=== PATIENT | female | born 1955 | race Caucasian/White ===

== ENCOUNTER 2018-08-24 13:07 | Emergency (ER) | payer MEDICARE, MEDICAID ==
[~2018-08-24] VITALS: Ht 170.2 cm; Wt 77.1 kg
--- OUTSIDE RECORDS SUMMARY | 2018-08-24 13:13 | XMS REPORT ---
Author Author Migration, Doctor Organization [facility] Address Unknown Phone Unavailable Care Team Providers Care Public Relations Director Name Role Phone Migration, Doctor Unavailable Unavailable PROBLEMS Type Condition ICD9-CM Code GIO55-DE Code Onset Dates Condition Status SNOMED Code Problem Elevated hemoglobin A1c R73.09 Active 298612283 Problem Screening for diabetes mellitus Z13.1 Active 868235262 Problem Hyperlipidemia LDL goal <70 E78.5 Active 93834035 Problem Chronic obstructive pulmonary disease, unspecified COPD type J44.9 Active 05983651 Problem Elevated C-reactive protein (CRP) R79.82 Active 429523969 Problem Other atopic dermatitis L20.89 Active 21927475 Problem Vitamin D deficiency E55.9 Active 79182084 Problem 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 966586835 Problem CHIDI positive R76.8 Active 584836660 ALLERGIES No Information ENCOUNTERS Encounter Location Date Diagnosis [facility] [id number] [place] [address] 33978- 2628 Aug, [facility] [id number] [place] [address] 61367- 7957 Jun, [facility] [id number] [place] [address] 13368 -0333 May, Cough R05 and Viral URI J06.9 [facility] [id number] [place] [address] 97421- 4934 May, [facility] [id number] [place] [address] 65676- 2509 May, [facility] [address] [address]27- 3734 May, [facility] [id number] [place] [address] 28500- 5834 Apr, Hyperlipidemia LDL goal <70 E78.5 [place] [id number] [place] [address] 66833- 6640 08 Apr, 2017 CHIDI positive R76.8 ; Need for hepatitis C screening test Z11.59 ; Diabetes mellitus screening Z13.1 and Vitamin D deficiency E55.9 [place] [id number] [place] [address] 86100- 7983 05 Apr, 2017 CHIDI positive R76.8 ; Elevated C-reactive protein (CRP) R79.82 ; 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 ; Chronic obstructive pulmonary disease, unspecified COPD type J44.9 ; Need for hepatitis C screening test Z11.59 ; Diabetes mellitus screening Z13.1 ; Other atopic dermatitis L20.89 and Vitamin D deficiency E55.9 [place] [id number] [place] [address] 88810- 6228 Mar, [place] [address] 96886- 5688 17 Mar, 2017 Other atopic dermatitis L20.89 [place] [id number] [place] [address] 32520- 8868 Mar, Dermatitis L30.9 ; CHIDI positive R76.8 ; Elevated C-reactive protein (CRP) R79.82 ; 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 and Chronic obstructive pulmonary disease, unspecified COPD type J44.9 [place] [id number] [place] [address] 62069- 1254 Mar, [facility] [id number] [place] [address] 37540 -4890 Feb, Acute cystitis N30.00 [facility] [address] [address] Feb, Dysuria R30.0 and Acute cystitis with hematuria N30.01 [facility] [id number] [place] [address] 31644 -1805 Dec, Allergic contact dermatitis, unspecified trigger L23.9 and Allergic conjunctivitis of both eyes H10.13 [facility] [address] [facility] [id number] [address] Nov, Other atopic dermatitis L20.89 [facility] [address] [facility] [id number], [place] [address] 1021 14 Aug, 2014 [facility] [address] [facility] [id number], [place] [address] 7369 Aug, [facility] [address] [facility] [id number], [place] [address]- 0105 08 Jan, 2014 [facility] [address] [facility] [id number], [place] [address] 9742 Jan, [facility] [address], [place] [address] 2859 Feb, [facility] [address], [place] [address] 4[address] 18 Feb, 2013 [facility] [address], [place] [address] 6683 Feb, [facility] [address], [place] [address] 5616 Feb, [facility] [address], [place] [address] 1180 Nov, [facility] [address], [place] [address] 2941 18 Aug, 2011 [facility] [address], [place] [address] 0640 16 Aug, 2011 [facility] [address], [place] [address] 8925 15 Aug, 2011 [facility] [address], [place] [address] 2[address] Aug, [facility] [id number] [address] 3629 Aug, IMMUNIZATIONS No Known Immunizations SOCIAL HISTORY Never Assessed REASON FOR VISIT EMR-[facility] PLAN OF CARE VITAL SIGNS MEDICATIONS Unknown Medications RESULTS No Results PROCEDURES No Known procedures INSTRUCTIONS MEDICATIONS ADMINISTERED No Known Medications MEDICAL (GENERAL) HISTORY Type Description Date Medical History chronic obstructive pulmonary disease (COPD) Surgical History left hip replacement November 2016 Surgical History breast reduction Surgical History exploratory laparoscopy Surgical History dilatation and curettage Surgical History ovarian cyst resection Hospitalization History [facility]ac[facility]
--- OUTSIDE RECORDS SUMMARY | 2018-08-24 13:13 | XMS REPORT ---
Author Author Migration, Doctor Organization [facility] Address Unknown Phone Unavailable Care Team Providers Care Aging Box Hand Name Role Phone Migration, Doctor Unavailable Unavailable PROBLEMS Type Condition ICD9-CM Code YDY03-PN Code Onset Dates Condition Status SNOMED Code Problem Elevated hemoglobin A1c R73.09 Active 744998931 Problem Screening for diabetes mellitus Z13.1 Active 689354615 Problem Hyperlipidemia LDL goal <70 E78.5 Active 84739600 Problem Chronic obstructive pulmonary disease, unspecified COPD type J44.9 Active 04865797 Problem Elevated C-reactive protein (CRP) R79.82 Active 849361833 Problem Other atopic dermatitis L20.89 Active 42825005 Problem Vitamin D deficiency E55.9 Active 63458649 Problem 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 165844927 Problem CHIDI positive R76.8 Active 278618940 ALLERGIES No Information ENCOUNTERS Encounter Location Date Diagnosis [facility] [id number] [place] [address] 92786- 4976 Aug, [facility] [id number] [place] [address] 42551- 2915 Jun, [facility] [id number] [place] [address] 91041 -6494 May, Cough R05 and Viral URI J06.9 [facility] [id number] [place] [address] 37088- 8020 May, [facility] [id number] [place] [address] 29881- 1638 May, [facility] [address] 57[address]- 9556 May, [facility] [id number] [place] [address] 70989- 0269 Apr, Hyperlipidemia LDL goal <70 E78.5 [place] [id number] [place] [address] 16613- 0636 08 Apr, 2017 CHIDI positive R76.8 ; Need for hepatitis C screening test Z11.59 ; Diabetes mellitus screening Z13.1 and Vitamin D deficiency E55.9 [place] [id number] [place] [address] 53727- 7684 05 Apr, 2017 CHIDI positive R76.8 ; Elevated C-reactive protein (CRP) R79.82 ; 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 ; Chronic obstructive pulmonary disease, unspecified COPD type J44.9 ; Need for hepatitis C screening test Z11.59 ; Diabetes mellitus screening Z13.1 ; Other atopic dermatitis L20.89 and Vitamin D deficiency E55.9 [place] [id number] [place] [address] 03381- 7829 Mar, [place] [address] 58383- 3339 17 Mar, 2017 Other atopic dermatitis L20.89 [place] [id number] [place] [address] 64006- 6521 Mar, Dermatitis L30.9 ; CHIDI positive R76.8 ; Elevated C-reactive protein (CRP) R79.82 ; 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 and Chronic obstructive pulmonary disease, unspecified COPD type J44.9 [place] [id number] [place] [address] 62749- 8057 Mar, [facility] [id number] [place] [address] 78024 -9803 Feb, Acute cystitis N30.00 [facility] [address] [address] -8936 Feb, Dysuria R30.0 and Acute cystitis with hematuria N30.01 [facility] [id number] [place] [address] 11422 -2215 Dec, Allergic contact dermatitis, unspecified trigger L23.9 and Allergic conjunctivitis of both eyes H10.13 [facility] [address] [facility] [id number], [place] [address] Nov, Other atopic dermatitis L20.89 [facility] [address] [facility] [id number], [place] [address]- 2262 14 Aug, 2014 [facility] [address] [facility] [id number], [place] [address]- 1831 Aug, [facility] [address] [facility] [id number], [place] [address]- 5398 08 Jan, 2014 [facility] [address] [facility] [id number], [place] [address]- 4133 Jan, [facility] [address], [place] [address]- 1011 Feb, [facility] [address], [place] [address]- 7302 18 Feb, 2013 [facility] [address], [place] [address]- 5486 Feb, [facility] [address], [place] [address]- 3036 Feb, [facility] [address], [place] [address]- 4176 Nov, [facility] [address], [place] [address]- 4356 18 Aug, 2011 [facility] [address], [place] [address]- 7716 16 Aug, 2011 [facility] [address], [place] [address]- 1290 15 Aug, 2011 [facility] [address], [place] [address]- 5265 Aug, [facility] [id number], [place] [address]- 1218 Aug, IMMUNIZATIONS No Known Immunizations SOCIAL HISTORY Never Assessed REASON FOR VISIT EMR-[facility] PLAN OF CARE VITAL SIGNS MEDICATIONS Medication Instructions Dosage Frequency Start Date End Date Duration Status DuoNeb 0.5 mg-3 mg(2.5 mg base)/3 mL 3 mL by Inhalation route 4 times per dayPRN Nov, Active tramadol 50 mg take 1 tablet by Oral route every 6 hours as needed PRN pain Feb, Active Combivent Respimat 20-100 mcg/actuation inhale 1 puff ; may take additional puffs as needed 4 times per day not to exceed 6 puffs in 24hrs Feb, Active Atrovent HFA 17 mcg/actuation 2 puffs by Inhalation route 4 times per day Aug, Active Amoxicillin 500 mg 1 capsule by Oral route 3 times per day for 10 days Feb, Active RESULTS No Results PROCEDURES No Known procedures INSTRUCTIONS MEDICATIONS ADMINISTERED No Known Medications MEDICAL (GENERAL) HISTORY Type Description Date Medical History chronic obstructive pulmonary disease (COPD) Surgical History left hip replacement November 2016 Surgical History breast reduction Surgical History exploratory laparoscopy Surgical History dilatation and curettage Surgical History ovarian cyst [facility]
--- OUTSIDE RECORDS SUMMARY | 2018-08-24 13:13 | XMS REPORT ---
Author Author JANIEAZEB Organization [facility] Address [address] [place] [address] Care Team Providers Care Clearing Tub Worker Name Role Phone LIMAAZEB Piedra Unavailable PROBLEMS Type Condition ICD9-CM Code XLG68-SJ Code Onset Dates Condition Status SNOMED Code Problem Elevated hemoglobin A1c R73.09 Active 197287624 Problem Hyperlipidemia LDL goal <70 E78.5 Active 33205048 Problem Screening for diabetes mellitus Z13.1 Active 984944827 Problem Elevated C-reactive protein (CRP) R79.82 Active 118810484 Problem Chronic obstructive pulmonary disease, unspecified COPD type J44.9 Active 56396712 Problem Vitamin D deficiency E55.9 Active 31636814 Problem Other atopic dermatitis L20.89 Active 36820854 Problem CHIDI positive R76.8 Active 495146275 Problem 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 712326146 ALLERGIES No Information ENCOUNTERS Encounter Location Date Diagnosis [facility] [address] [address]- [address]951 Aug, [facility] [id number] [place] [address] 03457- 1323 Jun, [facility] [id number] [place] [address] 57851 -1015 May, Cough R05 and Viral URI J06.9 [facility] [id number] [place] [address] 92145- 1640 May, [facility] [address] 24860- 9890 May, [facility] [id number] [place] [address] 95824- 9185 May, [facility] [address] 66140- 0224 Apr, Hyperlipidemia LDL goal <70 E78.5 [place] [address] 02655- 7082 Apr, CHIDI positive R76.8 ; Need for hepatitis C screening test Z11.59 ; Diabetes mellitus screening Z13.1 and Vitamin D deficiency E55.9 [place] [address] 12062- 3012 Apr, CHIDI positive R76.8 ; Elevated C-reactive protein (CRP) R79.82 ; 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 ; Chronic obstructive pulmonary disease, unspecified COPD type J44.9 ; Need for hepatitis C screening test Z11.59 ; Diabetes mellitus screening Z13.1 ; Other atopic dermatitis L20.89 and Vitamin D deficiency E55.9 [place] [address] 17335- 5671 Mar, [place] [address] 95659- 8012 Mar, Other atopic dermatitis L20.89 [place] [address] 51204- 4087 Mar, Dermatitis L30.9 ; CHIDI positive R76.8 ; Elevated C-reactive protein (CRP) R79.82 ; 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 and Chronic obstructive pulmonary disease, unspecified COPD type J44.9 [place] [id number] [place] [address] 48343- 8560 Mar, [facility] [id number] [place] [address] 58409 -8638 Feb, Acute cystitis N30.00 [facility] [address] [place] [address] 68177 -3368 Feb, Dysuria R30.0 and Acute cystitis with hematuria N30.01 [facility] [address] [place] [address] 12265 -7540 Dec, Allergic contact dermatitis, unspecified trigger L23.9 and Allergic conjunctivitis of both eyes H10.13 [facility] [address], [place] [address] Nov, Other atopic dermatitis L20.89 [facility] [address], [place] [address] 14 Aug, 2014 [facility] [id number] [place] [address] 23896- 5364 Aug, [facility] [id number] [place] [address] 07412- 2507 08 Jan, 2014 [facility] [id number] [place] [address] 65082- 2698 Jan, [facility] [id number] [place] [address] 91276- 2160 Feb, [facility] [id number] [place] [address] 90586- 7439 Feb, [facility] [id number] [place] [address] 55140- 9081 Feb, [facility] [id number] [place] [address] 58497- 5777 Feb, [facility] [address], [place] [address]- 6554 Nov, [facility] [id number] [place] [address] 48482- 1583 18 Aug, 2011 [facility] [address], [place] [address]- 3422 16 Aug, 2011 [facility] [id number] [place] [address] 31642- 1243 15 Aug, 2011 [facility] [id number], [place] [address]- 0143 Aug, [facility] [id number] [place] [address] 12930- 5656 Aug, IMMUNIZATIONS No Known Immunizations SOCIAL HISTORY Never Assessed REASON FOR VISIT Other PLAN OF CARE VITAL SIGNS MEDICATIONS Medication Instructions Dosage Frequency Start Date End Date Duration Status Cholecalciferol 5000 UNIT Orally Once a day 1 capsule 24h May, Nov, 90 days Active RESULTS No Results PROCEDURES No Known procedures INSTRUCTIONS MEDICATIONS ADMINISTERED No Known Medications MEDICAL (GENERAL) HISTORY Type Description Date Medical History chronic obstructive pulmonary disease (COPD) Surgical History left hip replacement November 2016 Surgical History breast reduction Surgical History exploratory laparoscopy Surgical History dilatation and curettage Surgical History [facility]
--- OUTSIDE RECORDS SUMMARY | 2018-08-24 13:13 | XMS REPORT ---
Author Author MANJIT FIGUEROA [facility] Address [address] [place] [address] Care Team Providers Care Rotary Soil Stabilizer Name Role Phone MANJIT FIGUEROA Unavailable PROBLEMS Type Condition ICD9-CM Code IEM42-FT Code Onset Dates Condition Status SNOMED Code Problem Elevated hemoglobin A1c R73.09 Active 516537147 Problem Hyperlipidemia LDL goal <70 E78.5 Active 26250498 Problem Screening for diabetes mellitus Z13.1 Active 914041187 Problem Elevated C-reactive protein (CRP) R79.82 Active 498415037 Problem Chronic obstructive pulmonary disease, unspecified COPD type J44.9 Active 04771946 Problem Vitamin D deficiency E55.9 Active 53527524 Problem Other atopic dermatitis L20.89 Active 22981964 Problem CHIDI positive R76.8 Active 760706866 Problem 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 867999620 ALLERGIES No Known Allergies ENCOUNTERS Encounter Location Date Diagnosis [facility] [address] [address] Aug, [facility] [address] [address] Jun, [facility] [id number] [place] [address] May, Cough R05 and Viral URI J06.9 [facility] [id number] [place] [address] May, [facility] [address] [address] May, [facility] [address] [address] May, [facility] [address] [address] Apr, Hyperlipidemia LDL goal <[address] [address] 08 Apr, 2017 CHIDI positive R76.8 ; Need for hepatitis C screening test Z11.59 ; Diabetes mellitus screening Z13.1 and Vitamin D deficiency E55.9 [place] [address] [address] Apr, CHIDI positive R76.8 ; Elevated C-reactive protein (CRP) R79.82 ; 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 ; Chronic obstructive pulmonary disease, unspecified COPD type J44.9 ; Need for hepatitis C screening test Z11.59 ; Diabetes mellitus screening Z13.1 ; Other atopic dermatitis L20.89 and Vitamin D deficiency E55.9 [place] [address] [address] Mar, [place] [address] [address] Mar, Other atopic dermatitis L20.89 [place] [address] [address] Mar, Dermatitis L30.9 ; CHIDI positive R76.8 ; Elevated C-reactive protein (CRP) R79.82 ; 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 and Chronic obstructive pulmonary disease, unspecified COPD type J44.9 [place] [address] [address] Mar, [facility] [address] [place] [address] Feb, Acute [facility]stitis N30.00 [facility] [address] [address] Feb, Dysuria R30.0 and Acute cystitis with hematuria N30.01 [facility] [address] [address] Dec, Allergic contact dermatitis, unspecified trigger L23.9 and Allergic conjunctivitis of both eyes H10.13 [facility] [address] [address] Nov, Other atopic dermatitis L20.89 [facility] [address] [address] 14 Aug, 2014 [facility] [id number] [place] [address] Aug, [facility] [id number] [place] [address] Jan, [facility] [id number] [place] [address] Jan, [facility] [id number] [place] [address]- [address] Feb, [facility] [id number] [place] [address] 18 Feb, 2013 [facility] [id number] [place] [address]- [address] Feb, [facility] [id number] [place] [address] Feb, [facility] [address] [address] Nov, [facility] [id number] [address] 18 Aug, 2011 [facility] [address] [address] 16 Aug, 2011 [facility] [id number] [place] [address] 15 Aug, 2011 [facility] [address] [address] Aug, [facility] [id number] [place] [phone] Aug, IMMUNIZATIONS No Known Immunizations SOCIAL HISTORY Never Assessed REASON FOR VISIT flu symptoms Pt reports cough and body aches for a week COBY Enriquez PLAN OF CARE Activity Details Follow Up prn Reason: VITAL SIGNS Height 67 in 2017-05-17 Weight 168.8 lbs 2017-05-17 Temperature 98.6 degrees Fahrenheit 2017-05-17 Heart Rate 96 bpm 2017-05-17 Respiratory Rate 20 2017-05-17 BMI 26.43 kg/m2 2017-05-17 Blood pressure systolic 142 mmHg 2017-05-17 Blood pressure diastolic 68 mmHg 2017-05-17 MEDICATIONS Medication Instructions Dosage Frequency Start Date End Date Duration Status Albuterol Sulfate 108 (90 Base) MCG/ACT Inhalation every 4 hrs 1 puff as needed 4h Not-Taking Atorvastatin Calcium 20 mg Orally Once a day 1 tablet 24h Apr, 30 day(s) Active Mupirocin 2 % Externally Three times a day 1 application to affected area 8h Active Combivent Respimat 20-100 mcg/actuation inhale 1 puff ; may take additional puffs as needed 4 times per day not to exceed 6 puffs in 24hrs Feb, Active Cholecalciferol 5000 UNIT Orally Once a day 1 capsule 24h May, Nov, 90 days Active Benzonatate 200 MG Orally Three times a day 1 capsule 8h May, May, 7 days Active Cholecalciferol 52442 UNIT Orally Once every 7 days 1 capsule Not-Taking Triamcinolone Acetonide 0.1 % Externally Twice a day 1 application to affected area 12h Nov, 10 days Active Olopatadine HCl 0.1 % Ophthalmic Twice a day 1 drop into affected eye 12h Dec, 7 days Active Ergocalciferol 21229 UNIT 1 capsule Active Zantac 150 MG Orally Once a day 1 tablet at bedtime 24h Active Advair Diskus 250-50 MCG/DOSE Inhalation Twice a day 1 puff 12h Active Calcium 600 + D 600-200 MG-UNIT Orally twice a day 1 tablet with a meal 12h Active Claritin 10 MG Orally Once a day 1 tablet 24h Active DuoNeb 0.5 mg-3 mg(2.5 mg base)/3 mL 3 mL by Inhalation route 4 times per dayPRN Nov, Not-Taking Pawling 10-325 MG Orally every 6 hrs 1 tablet as needed 6h Not- Taking RESULTS Name Result Date Reference Range INFLUENZA A & B (IN HOUSE) INFLUENZA A negative INFLUENZA B negative Control + Lot # [id number] Exp date [id number] PROCEDURES Procedure Date Ordered Result Body Site INFLUENZA ASSAY W/OPTIC May 17, 2017 [facility] VISIT ESTABLISHED PATIENT May 17, 2017 INSTRUCTIONS MEDICATIONS ADMINISTERED No Known Medications MEDICAL (GENERAL) HISTORY Type Description Date Medical History chronic obstructive pulmonary disease (COPD) Surgical History left hip replacement November 2016 Surgical History breast reduction Surgical History exploratory laparoscopy Surgical History dilatation and curettage Surgical History ovarian cyst resection [facility]
--- OUTSIDE RECORDS SUMMARY | 2018-08-24 13:13 | XMS REPORT ---
Author Author JANIEAZEB Organization [facility] Address [address] [place] [address] Care Team Providers Care Web User Experience Strategist Name Role Phone LIMATAMAR PiedraELE Unavailable PROBLEMS Type Condition ICD9-CM Code GPH04-GK Code Onset Dates Condition Status SNOMED Code Problem Elevated hemoglobin A1c R73.09 Active 874582688 Problem Hyperlipidemia LDL goal <70 E78.5 Active 89892737 Problem Screening for diabetes mellitus Z13.1 Active 122967363 Problem Elevated C-reactive protein (CRP) R79.82 Active 080117075 Problem Chronic obstructive pulmonary disease, unspecified COPD type J44.9 Active 85270744 Problem Vitamin D deficiency E55.9 Active 76864192 Problem Other atopic dermatitis L20.89 Active 95079663 Problem CHIDI positive R76.8 Active 139773099 Problem 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 119311929 ALLERGIES No Information ENCOUNTERS Encounter Location Date Diagnosis [facility] [address] [address] Aug, [facility] [id number] [place] [address] Jun, [facility] [id number] [place] [address] May, Cough R05 and Viral URI J06.9 [facility] [id number] [place] [address] May, [facility] [address] [address] May, [facility] [id number] [place] [address] May, [facility] [address] [address] Apr, Hyperlipidemia LDL goal <70 E78.5 [place] [address] [address] Apr, CHIDI positive R76.8 ; Need for hepatitis C screening test Z11.59 ; Diabetes mellitus screening Z13.1 and Vitamin D deficiency E55.9 [place] [address] [address] Apr, CHIDI positive R76.8 ; Elevated C-reactive protein (CRP) R79.82 ; 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 ; Chronic obstructive pulmonary disease, unspecified COPD type J44.9 ; Need for hepatitis C screening test Z11.59 ; Diabetes mellitus screening Z13.1 ; Other atopic dermatitis L20.89 and Vitamin D deficiency E55.9 [place] [address] [address] Mar, [place] [address] [address] Mar, Other atopic dermatitis L20.89 [place] [address] [address] Mar, Dermatitis L30.9 ; CHIDI positive R76.8 ; Elevated C-reactive protein (CRP) R79.82 ; 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 and Chronic obstructive pulmonary disease, unspecified COPD type J44.9 [place] [id number] [place] [address]- [address] Mar, [facility] [id number] [place] [address] Feb, Acute cystitis N30.00 [facility] [address] [place] [address] Feb, Dysuria R30.0 and Acute cystitis with hematuria N30.01 [facility] [address] [place] [address] Dec, Allergic contact dermatitis, unspecified trigger L23.9 and Allergic conjunctivitis of both eyes H10.13 [facility] [address], [place] [address] Nov, Other atopic dermatitis L20.89 [facility] [address], [place] [address] 14 Aug, 2014 [facility] [id number] [place] [address]- 2392 Aug, [facility] [id number] [place] [address]- [address] 08 Jan, 2014 [facility] [id number] [place] [address]- [address]267 Jan, [facility] [id number] [place] [address]- [address] Feb, [facility] [id number] [place] [address]- 6[address] Feb, [facility] [id number] [place] [address]308- 9899 Feb, [facility] [id number] [place] [address]- 4250 Feb, [facility] [id number] [place] [address] Nov, [facility] [id number] [place] [address]- [address] 18 Aug, 2011 [facility] [address] [address] 16 Aug, 2011 [facility] [id number] [place] [address]- 17[address] 15 Aug, 2011 [facility] [id number] [address] Aug, [facility] [id number] [place] [address]- [address] Aug, IMMUNIZATIONS No Known Immunizations SOCIAL HISTORY Never Assessed REASON FOR VISIT Medical records request PLAN OF CARE VITAL SIGNS MEDICATIONS Unknown Medications RESULTS No Results PROCEDURES No Known procedures INSTRUCTIONS MEDICATIONS ADMINISTERED No Known Medications MEDICAL (GENERAL) HISTORY Type Description Date Medical History chronic obstructive pulmonary disease (COPD) Surgical History left hip replacement November 2016 Surgical History breast reduction Surgical History exploratory laparoscopy Surgical History dilatation and curettage Surgical History ovarian cyst resection Hospitalization History [facility]
--- OUTSIDE RECORDS SUMMARY | 2018-08-24 13:13 | XMS REPORT ---
Author Author JANIEAZEB Organization [facility] Address [address] [place] [address] Care Team Providers Care Air Pollution Specialist Name Role Phone LIMAAZEB Piedra Unavailable PROBLEMS Type Condition ICD9-CM Code NPF91-GT Code Onset Dates Condition Status SNOMED Code Problem Elevated hemoglobin A1c R73.09 Active 548669431 Problem Hyperlipidemia LDL goal <70 E78.5 Active 55752083 Problem Screening for diabetes mellitus Z13.1 Active 450562818 Problem Elevated C-reactive protein (CRP) R79.82 Active 294347697 Problem Chronic obstructive pulmonary disease, unspecified COPD type J44.9 Active 82152407 Problem Vitamin D deficiency E55.9 Active 20431488 Problem Other atopic dermatitis L20.89 Active 51662632 Problem CHIDI positive R76.8 Active 677968135 Problem 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 096772020 ALLERGIES No Information ENCOUNTERS Encounter Location Date Diagnosis [facility] [address] [address] Aug, [facility] [id number] [place] [address] Jun, [facility] [id number] [place] [address] May, Cough R05 and Viral URI J06.9 [facility] [id number] [place] [address]- [address] May, [facility] [address] [address] May, [facility] [id number] [place] [address]68- 9969 May, [facility] [address] [address] Apr, Hyperlipidemia LDL goal <70 E78.5 [place] [address] [address]- [address] Apr, CHIDI positive R76.8 ; Need for hepatitis C screening test Z11.59 ; Diabetes mellitus screening Z13.1 and Vitamin D deficiency E55.9 [place] [address] [address]- [address] Apr, CHIDI positive R76.8 ; Elevated C-reactive protein (CRP) R79.82 ; 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 ; Chronic obstructive pulmonary disease, unspecified COPD type J44.9 ; Need for hepatitis C screening test Z11.59 ; Diabetes mellitus screening Z13.1 ; Other atopic dermatitis L20.89 and Vitamin D deficiency E55.9 [place] [address] [address] Mar, [place] [address] [address]- [address] Mar, Other atopic dermatitis L20.89 [place] [address] [address] Mar, Dermatitis L30.9 ; CHIDI positive R76.8 ; Elevated C-reactive protein (CRP) R79.82 ; 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 and Chronic obstructive pulmonary disease, unspecified COPD type J44.9 [place] [id number] [place] [address]- 40[address] Mar, [facility] [id number] [place] [address] Feb, Acute cystitis N30.00 [facility] [address] [place] [address] Feb, Dysuria R30.0 and Acute cystitis with hematuria N30.01 [facility] [address] [place] [address] Dec, Allergic contact dermatitis, unspecified trigger L23.9 and Allergic conjunctivitis of both eyes H10.13 [facility] [address], [place] [address] Nov, Other atopic dermatitis L20.89 [facility] [address] [place] [address] 14 Aug, 2014 [facility] [id number] [place] [address] 31302- 3360 Aug, [facility] [id number] [place] [address]50- 4836 08 Jan, 2014 [facility] [id number] [place] [address]- 4268 Jan, [facility] [id number] [place] [address] 57784- 3084 Feb, [facility] [id number] [place] [address] 09557- 2731 Feb, [facility] [id number] [place] [address] 95560- 3470 Feb, [facility] [id number] [place] [address] 31689- 9133 Feb, [facility] [address] [place] [address] Nov, [facility] [address] [place] [address] 47593- 3861 18 Aug, 2011 [facility] [address], [place] [address] 16 Aug, 2011 [facility] [id number] [place] [address] 31958- 6781 15 Aug, 2011 [facility] [id number] [address] Aug, [facility] [id number] [place] [address] 93141- 9980 Aug, IMMUNIZATIONS No Known Immunizations SOCIAL HISTORY Never Assessed REASON FOR VISIT Med Records PLAN OF CARE VITAL SIGNS MEDICATIONS Unknown [...] and [facility]
--- OUTSIDE RECORDS SUMMARY | 2018-08-24 13:14 | XMS REPORT ---
Author Author JANIETAMARAZEB Organization [facility] Address [address] [place] [address] Care Team Providers Care Sprinkler Tender Name Role Phone LIMAAZEB Piedra Unavailable PROBLEMS Type Condition ICD9-CM Code [id number] Code Onset Dates Condition Status SNOMED Code Problem Elevated hemoglobin A1c R73.09 Active 557176436 Problem Hyperlipidemia LDL goal <70 E78.5 Active 38987048 Problem Screening for diabetes mellitus Z13.1 Active 716810673 Problem Elevated C-reactive protein (CRP) R79.82 Active 221507616 Problem Chronic obstructive pulmonary disease, unspecified COPD type J44.9 Active 88685098 Problem Vitamin D deficiency E55.9 Active 88265255 Problem Other atopic dermatitis L20.89 Active 59737251 Problem CHIDI positive R76.8 Active 754964391 Problem 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 871521796 ALLERGIES No Known Allergies ENCOUNTERS Encounter Location Date Diagnosis [facility] [address] [address] Aug, [facility] [address] [address] Jun, [facility] [address] [address] May, Cough R05 and Viral URI J06.9 [facility] [address] [place] [id number] [place] [address] May, [facility] [address] [address] May, [facility] [address] [address] May, [facility] [address] [address] Apr, Hyperlipidemia LDL goal <[address] [address] Apr, CHIDI positive R76.8 ; Need for hepatitis C screening test Z11.59 ; Diabetes mellitus screening Z13.1 and Vitamin D deficiency E55.9 [place] [address] [address] Apr, CHIDI positive R76.8 ; Elevated C-reactive protein (CRP) R79.82 ; 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 ; Chronic obstructive pulmonary disease, unspecified COPD type J44.9 ; Need for hepatitis C screening test Z11.59 ; Diabetes mellitus screening Z13.1 ; Other atopic dermatitis L20.89 and Vitamin D deficiency E55.9 [place] [address] [address] Mar, [place] [address] [address] Mar, Other atopic dermatitis L20.89 [place] [address] [address] Mar, Dermatitis L30.9 ; CHIDI positive R76.8 ; Elevated C-reactive protein (CRP) R79.82 ; 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 and Chronic obstructive pulmonary disease, unspecified COPD type J44.9 [place] [id number] [place] [address] Mar, [facility] [address] [place] [id number] [place] [address] Feb, Acute cystitis N30.00 [facility] [address] [place] [address] Feb, Dysuria R30.0 and Acute cystitis with hematuria N30.01 [facility] [address] [place] [address] Dec, Allergic contact dermatitis, unspecified trigger L23.9 and Allergic conjunctivitis of both eyes H10.13 [facility] [address] [address] Nov, Other atopic dermatitis L20.89 [facility] [address] [address] 14 Aug, 2014 [facility] [id number] [place] [address] 160[address] Aug, [facility] [address], [place] [address] 08 Jan, 2014 [facility] [id number] [place] [address] Jan, [facility] [id number] [place] [address]84- [address] Feb, [facility] [id number] [place] [address]- 8[address] 18 Feb, 2013 [facility] [address], [place] [address] Feb, [facility] [address] [place] [address]- 14[address] Feb, [facility] [address] [address] Nov, [facility] [address], [place] [address] 18 Aug, 2011 [facility] [address], [place] [address] 16 Aug, 2011 [facility] [id number] [place] [address]- [address] 15 Aug, 2011 [facility] [address], [place] [address] Aug, [facility] [id number] [place] [phone] Aug, IMMUNIZATIONS No Known Immunizations SOCIAL HISTORY Never Assessed REASON FOR VISIT Establish Care----Katty, would like lupus workup PLAN OF CARE Activity Details Follow Up 3 Months Reason:CHM VITAL SIGNS Height 67 in 2017-04-09 Weight 179 lbs 2017-04-09 Temperature 97.5 degrees Fahrenheit 2017-04-09 Heart Rate 100 bpm 2017-04-09 Respiratory Rate 20 2017-04-09 BMI 28.03 kg/m2 2017-04-09 Blood pressure systolic 124 mmHg 2017-04-09 Blood pressure diastolic 86 mmHg 2017-04-09 MEDICATIONS Medication Instructions Dosage Frequency Start Date End Date Duration Status Combivent Respimat 20-100 mcg/actuation inhale 1 puff ; may take additional puffs as needed 4 times per day not to exceed 6 puffs in 24hrs Feb, Active Triamcinolone Acetonide 0.1 % Externally Twice a day 1 application to affected area 12h Nov, 10 days Active Calcium 600 + D 600-200 MG-UNIT Orally twice a day 1 tablet with a meal 12h Active Albuterol Sulfate 108 (90 Base) MCG/ACT Inhalation every 4 hrs 1 puff as needed 4h Active Mupirocin 2 % Externally Three times a day 1 application to affected area 8h Active Zantac 150 MG Orally Once a day 1 tablet at bedtime 24h Not-Taking Arden 10-325 MG Orally every 6 hrs 1 tablet as needed 6h Not- Taking Advair Diskus 250-50 MCG/DOSE Inhalation Twice a day 1 puff 12h Active Olopatadine HCl 0.1 % Ophthalmic Twice a day 1 drop into affected eye 12h Dec, 7 days Active Cholecalciferol 89686 UNIT Orally Once every 7 days 1 capsule Not-Taking Aquaphor - Externally as needed, keep moisturized with aquaphor and unscented lotions- avoid rubbing dry after showers as directed Mar, Apr, 30 days Active DuoNeb 0.5 mg-3 mg(2.5 mg base)/3 mL 3 mL by Inhalation route 4 times per dayPRN Nov, Active Claritin 10 MG Orally Once a day 1 tablet 24h Not-Taking Ergocalciferol 39097 UNIT 1 capsule Active RESULTS No Results PROCEDURES Procedure Date Ordered Result Body Site [facility] VISIT ESTABLISHED PATIENT Apr 09, 2017 INSTRUCTIONS MEDICATIONS ADMINISTERED No Known Medications MEDICAL (GENERAL) HISTORY Type Description Date Medical History chronic obstructive pulmonary disease (COPD) Surgical History left hip replacement November 2016 Surgical History breast reduction Surgical History exploratory laparoscopy Surgical History dilatation and curettage Surgical History ovarian cyst resection Hospitalization History Surgery and [facility] for hip replacment
--- OUTSIDE RECORDS SUMMARY | 2018-08-24 13:14 | XMS REPORT ---
Author Author MANJIT FIGUEROA Organization [facility] Address [address] [place] [address] Care Team Providers Care Photo Graphics Librarian Name Role Phone MANJIT FIGUEROA Unavailable PROBLEMS Type Condition ICD9-CM Code [id number] Code Onset Dates Condition Status SNOMED Code Problem Elevated hemoglobin A1c R73.09 Active 473868925 Problem Hyperlipidemia LDL goal <70 E78.5 Active 46516134 Problem Screening for diabetes mellitus Z13.1 Active 370185785 Problem Elevated C-reactive protein (CRP) R79.82 Active 942199797 Problem Chronic obstructive pulmonary disease, unspecified COPD type J44.9 Active 45522642 Problem Vitamin D deficiency E55.9 Active 04237719 Problem Other atopic dermatitis L20.89 Active 05472404 Problem CHIDI positive R76.8 Active 997041259 Problem 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 402680138 ALLERGIES No Known Allergies ENCOUNTERS Encounter Location Date Diagnosis [facility] [address] [address] Aug, [facility] [address] [address] Jun, [facility] [address] [place] [id number] [place] [address] May, Cough R05 and Viral URI J06.9 [facility] [id number] [place] [address] May, [facility] [address] [address] May, [facility] [address] [address] May, [facility] [address] [address] Apr, Hyperlipidemia LDL goal <[address] [address] 08 Apr, 2017 CHIDI positive R76.8 ; Need for hepatitis C screening test Z11.59 ; Diabetes mellitus screening Z13.1 and Vitamin D deficiency E55.9 [place] [address] [address] Apr, CHIDI positive R76.8 ; Elevated C-reactive protein (CRP) R79.82 ; 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 ; Chronic obstructive pulmonary disease, unspecified COPD type J44.9 ; Need for hepatitis C screening test Z11.59 ; Diabetes mellitus screening Z13.1 ; Other atopic dermatitis L20.89 and Vitamin D deficiency E55.9 [place] [address] [address] Mar, [place] [address] [address] Mar, Other atopic dermatitis L20.89 [place] [address] [address] Mar, Dermatitis L30.9 ; CHIDI positive R76.8 ; Elevated C-reactive protein (CRP) R79.82 ; 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 and Chronic obstructive pulmonary disease, unspecified COPD type J44.9 [place] [address] [address] Mar, [facility] [address] [place] [address] Feb, Acute cystitis N30.00 [facility] [address] [address] Feb, Dysuria R30.0 and Acute cystitis with hematuria N30.01 [facility] [address] [address] Dec, Allergic contact dermatitis, unspecified trigger L23.9 and Allergic conjunctivitis of both eyes H10.13 [facility] [address] [address] Nov, Other atopic dermatitis L20.89 [facility] [address] [address] 14 Aug, 2014 [facility] [address] [id number] [place] [address] Aug, [facility] [id number] [place] [address] Jan, [facility] [id number] [place] [address] Jan, [facility] [id number] [place] [address]- [address] Feb, [facility] [id number] [place] [address]- [address] 18 Feb, 2013 [facility] [id number] [place] [address]- [address] Feb, [facility] [id number] [place] [address]- [address] Feb, [facility] [address] [address] Nov, [facility] [id number] [address] 18 Aug, 2011 [facility] [address] [address] 16 Aug, 2011 [facility] [id number] [place] [address] 15 Aug, 2011 [facility] [address] [address] Aug, [facility] [id number] [place] [address] Aug, IMMUNIZATIONS No Known Immunizations SOCIAL HISTORY Never Assessed REASON FOR VISIT dysuria, frequency with little results. been like this for 2 weeks. pt is also complaining of rash that she has had for 4 months. has been to the [facility] for this a couple times. rash was originally on her face...thats cleared up...now its all over her body. reports it itches. [email or web address] PLAN OF CARE Activity Details Follow Up prn Reason: VITAL SIGNS Height 67 in 2017-02-08 Weight 172.8 lbs 2017-02-08 Temperature 98.6 degrees Fahrenheit 2017-02-08 Heart Rate 88 bpm 2017-02-08 Respiratory Rate 20 2017-02-08 BMI 27.06 kg/m2 2017-02-08 Blood pressure systolic 132 mmHg 2017-02-08 Blood pressure diastolic 76 mmHg 2017-02-08 MEDICATIONS Medication Instructions Dosage Frequency Start Date End Date Duration Status Macrobid 100 MG Orally every 12 hrs 1 capsule with food 12h Feb, Feb, 7 day(s) Active Cholecalciferol 5000 UNIT Orally Once every 7 days 1 capsule Active DuoNeb 0.5 mg-3 mg(2.5 mg base)/3 mL 3 mL by Inhalation route 4 times per dayPRN Nov, Active Combivent Respimat 20-100 mcg/actuation inhale 1 puff ; may take additional puffs as needed 4 times per day not to exceed 6 puffs in 24hrs Feb, Active Fish Oil 1000 MG Orally Once a day 1 capsule 24h Active Mupirocin 2 % Externally Three times a day 1 application to affected area 8h Active Claritin 10 MG Orally Once a day 1 tablet 24h Active Albuterol Sulfate 108 (90 Base) MCG/ACT Inhalation every 4 hrs 1 puff as needed 4h Active Advair Diskus 250-50 MCG/DOSE Inhalation Twice a day 1 puff 12h Active Calcium 600 + D 600-200 MG-UNIT Orally Once a day 1 tablet with a meal 24h Active Zantac 150 MG Orally Once a day 1 tablet at bedtime 24h Active Vitamin D-3 1000 UNIT Orally Once a day 2 capsule 24h Active Triamcinolone Acetonide 0.1 % Externally Twice a day 1 application to affected area 12h Nov, Active Olopatadine HCl 0.1 % Ophthalmic Twice a day 1 drop into affected eye 12h 22 Dec, 2016 7 days Active RESULTS Name Result Date Reference Range UA LONG DIP (IN HOUSE) 2017-02-08 Lot # [id number] Exp date 2017 12 31 Clarity clear Color dk yellow Odor slight GLU negative LILI negative KET trace SG 1.020 BLO trace pH 6.5 Protein trace URO 0.2 NIT negative CHERYL 1+ Lot # [id number] Exp date august 2017 CULTURE, URINE 2017-02-08 Urine Culture, Routine Final report Result 1 Proteus mirabilis Antimicrobial Susceptibility PROCEDURES Procedure Date Ordered Result Body Site URINALYSIS, AUTO, W/O SCOPE Feb 08, 2017 LAB NOT BILLED BY [facility] Feb 08, 2017 FQ VISIT ESTABLISHED PATIENT Feb 08, 2017 INSTRUCTIONS MEDICATIONS ADMINISTERED No Known Medications MEDICAL (GENERAL) HISTORY Type Description Date Medical History chronic obstructive pulmonary disease (COPD) Surgical History left hip replacement November 2016 Surgical History breast reduction Surgical History exploratory laparoscopy Surgical History dilatation and curettage Surgical History ovarian cyst resection Hospitalization History Surgery and [facility] Re[facility] for hip replacment
--- OUTSIDE RECORDS SUMMARY | 2018-08-24 13:14 | XMS REPORT ---
Author Author JANIEAZEB Organization [facility] Address [address] [place] [address] Care Team Providers Care Congregational Care Pastor Name Role Phone LIMAAZEB Piedra Unavailable PROBLEMS Type Condition ICD9-CM Code [id number] Code Onset Dates Condition Status SNOMED Code Problem Elevated hemoglobin A1c R73.09 Active 490957382 Problem Hyperlipidemia LDL goal <70 E78.5 Active 21997659 Problem Screening for diabetes mellitus Z13.1 Active 269173843 Problem Elevated C-reactive protein (CRP) R79.82 Active 173953427 Problem Chronic obstructive pulmonary disease, unspecified COPD type J44.9 Active 57779792 Problem Vitamin D deficiency E55.9 Active 72764319 Problem Other atopic dermatitis L20.89 Active 95896649 Problem CHIDI positive R76.8 Active 275623732 Problem 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 113733530 ALLERGIES No Information ENCOUNTERS Encounter Location Date Diagnosis [facility] [address] [address] Aug, [facility] [address] [place] [id number] [place] [address] Jun, [facility] [id number] [place] [address] May, Cough R05 and Viral URI J06.9 [facility] [id number] [place] [address]- [address] May, [facility] [address] [address] May, [facility] [id number] [place] [address]- [address] May, [facility] [address] [address] Apr, Hyperlipidemia LDL goal <70 E78.5 [place] [address] [address] Apr, CHIDI positive R76.8 ; Need for hepatitis C screening test Z11.59 ; Diabetes mellitus screening Z13.1 and Vitamin D deficiency E55.9 [place] [address] [address] Apr, CHIDI positive R76.8 ; Elevated C-reactive protein (CRP) R79.82 ; 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 ; Chronic obstructive pulmonary disease, unspecified COPD type J44.9 ; Need for hepatitis C screening test Z11.59 ; Diabetes mellitus screening Z13.1 ; Other atopic dermatitis L20.89 and Vitamin D deficiency E55.9 [place] [address] [address] Mar, [place] [address] [address] Mar, Other atopic dermatitis L20.89 [place] [address] [address] Mar, Dermatitis L30.9 ; CHIDI positive R76.8 ; Elevated C-reactive protein (CRP) R79.82 ; 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 and Chronic obstructive pulmonary disease, unspecified COPD type J44.9 [place] [address] [place] [id number] [place] [address] Mar, [facility] [place]note 2[facility] [address] [place] [id number] [place] [address] Feb, Acute cystitis N30.00 [facility] [address] [place] [address] Feb, Dysuria R30.0 and Acute cystitis with hematuria N30.01 [facility] [address] [place] [address] Dec, Allergic contact dermatitis, unspecified trigger L23.9 and Allergic conjunctivitis of both eyes H10.13 [facility] [address], [place] [address] Nov, Other atopic dermatitis L20.89 [facility] [address], [place] [address] 14 Aug, 2014 [facility] [id number] [place] [address]- [address] Aug, [facility] [id number] [place] [address]212- [address] 08 Jan, 2014 [facility] [id number] [place] [address]- [address] Jan, [facility] [id number] [place] [address] 25365- 6674 Feb, [facility] [id number] [place] [address]67- [address] Feb, [facility] [id number] [place] [address] 48[address]- 98[address] Feb, [facility] [id number] [place] [address] 48849- 0378 Feb, [facility] [address] [address] Nov, [facility] [address] [place] [address]6025- [address]60 18 Aug, 2011 [facility] [address], [place] [address] 16 Aug, 2011 [facility] [id number] [place] [address] 8[address]- [address] 15 Aug, 2011 [facility] [address] [address] Aug, [facility] [id number] [place] [address] Aug, IMMUNIZATIONS No Known Immunizations SOCIAL HISTORY Never Assessed REASON FOR VISIT Refill request PLAN OF CARE VITAL SIGNS MEDICATIONS [...] ovarian cyst resection [facility]
--- OUTSIDE RECORDS SUMMARY | 2018-08-24 13:14 | XMS REPORT ---
Author Author JANIEAZEB Organization [facility] Address [address] [place] [address] Care Team Providers Care Frame Opener Name Role Phone LIMATAMAR PiedraELE Unavailable PROBLEMS Type Condition ICD9-CM Code ENI45-ZP Code Onset Dates Condition Status SNOMED Code Problem Elevated hemoglobin A1c R73.09 Active 137094102 Problem Hyperlipidemia LDL goal <70 E78.5 Active 22275517 Problem Screening for diabetes mellitus Z13.1 Active 344662353 Problem Elevated C-reactive protein (CRP) R79.82 Active 537360803 Problem Chronic obstructive pulmonary disease, unspecified COPD type J44.9 Active 71856385 Problem Vitamin D deficiency E55.9 Active 34471100 Problem Other atopic dermatitis L20.89 Active 04546527 Problem CHIDI positive R76.8 Active 802490658 Problem 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 236181492 ALLERGIES No Information ENCOUNTERS Encounter Location Date Diagnosis [facility] [address] [address] Aug, [facility] [id number] [place] [address]14- 4690 Jun, [facility] [id number] [place] [address]376 -[address]80 May, Cough R05 and Viral URI J06.9 [facility] [id number] [place] [address] 52573- 4436 May, [facility] [address] [address] May, [facility] [id number] [place] [address] 10838- 4533 May, [facility] [address] [address] Apr, Hyperlipidemia LDL goal <70 E78.5 [place] [address] [address] Apr, CHIDI positive R76.8 ; Need for hepatitis C screening test Z11.59 ; Diabetes mellitus screening Z13.1 and Vitamin D deficiency E55.9 [place] [address] [address]- 6147 Apr, CHIDI positive R76.8 ; Elevated C-reactive protein (CRP) R79.82 ; 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 ; Chronic obstructive pulmonary disease, unspecified COPD type J44.9 ; Need for hepatitis C screening test Z11.59 ; Diabetes mellitus screening Z13.1 ; Other atopic dermatitis L20.89 and Vitamin D deficiency E55.9 [place] [address] [address]- [address] Mar, [place] [address] [address]- 5541 Mar, Other atopic dermatitis L20.89 [place] [address] 40843- 5794 Mar, Dermatitis L30.9 ; CHIDI positive R76.8 ; Elevated C-reactive protein (CRP) R79.82 ; 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 and Chronic obstructive pulmonary disease, unspecified COPD type J44.9 [place] [id number] [place] [address] 51068- 3047 Mar, [facility] [id number] [place] [address]2664 Feb, Acute cystitis N30.00 [facility] [address] [place] [address] Feb, Dysuria R30.0 and Acute cystitis with hematuria N30.01 [facility] [address] [place] [address] 36005 [address]4747 Dec, Allergic contact dermatitis, unspecified trigger L23.9 and Allergic conjunctivitis of both eyes H10.13 [facility] [address] [address] Nov, Other atopic dermatitis L20.89 [facility] [address] [address] 14 Aug, 2014 [facility] [id number] [place] [address] 11233- 8646 Aug, [facility] [id number] [place] [address] 44327- 1164 08 Jan, 2014 [facility] [id number] [place] [address] 36958- 0340 Jan, [facility] [id number] [place] [address] 98430- 1835 Feb, [facility] [id number] [place] [address] 59414- 1503 Feb, [facility] [id number] [place] [address] 35874- 9075 Feb, [facility] [id number] [place] [address] 67006- 8359 Feb, [facility] [address] [address] 40[address] Nov, [facility] [address] [place] [address] 24577- 9887 18 Aug, 2011 [facility] [address] [address] 40[address] 16 Aug, 2011 [facility] [id number] [place] [address] 96699- 4009 15 Aug, 2011 [facility] [id number] [address] 6[address] Aug, [facility] [id number] [place] [address] 64296- 7126 Aug, IMMUNIZATIONS No Known Immunizations SOCIAL HISTORY Never Assessed REASON FOR VISIT Lab (walk-in)--[facility] PLAN OF CARE VITAL SIGNS MEDICATIONS Unknown Medications RESULTS No Results PROCEDURES Procedure Date Ordered Result Body Site No Charge Apr 12, 2017 LAB NOT BILLED [facility] Apr 12, 2017 VENIPUNCT, ROUTINE* Apr 12, 2017 Hemoglobin Test Send Out 0 dollar Apr 12, 2017 INSTRUCTIONS MEDICATIONS ADMINISTERED No Known Medications MEDICAL (GENERAL) HISTORY Type Description Date Medical History chronic obstructive pulmonary disease (COPD) Surgical History left hip replacement November 2016 Surgical History breast reduction Surgical History exploratory laparoscopy Surgical History dilatation and curettage Surgical History ovarian cyst resection Hospitalization History Surgery and Inpateint Rehab for hip replacment
--- OUTSIDE RECORDS SUMMARY | 2018-08-24 13:14 | XMS REPORT ---
Author Author JANIETAMARAZEB Organization [facility] Address [address] [place] [address] Care Team Providers Care Outsole Leveler Name Role Phone LIMAAZEB Piedra Unavailable PROBLEMS Type Condition ICD9-CM Code SWS16-WI Code Onset Dates Condition Status SNOMED Code Problem Elevated hemoglobin A1c R73.09 Active 614725918 Problem Hyperlipidemia LDL goal <70 E78.5 Active 40912409 Problem Screening for diabetes mellitus Z13.1 Active 063750062 Problem Elevated C-reactive protein (CRP) R79.82 Active 487245085 Problem Chronic obstructive pulmonary disease, unspecified COPD type J44.9 Active 82576526 Problem Vitamin D deficiency E55.9 Active 19883831 Problem Other atopic dermatitis L20.89 Active 76277618 Problem CHIDI positive R76.8 Active 479204513 Problem 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 854046513 ALLERGIES No Known Allergies ENCOUNTERS Encounter Location Date Diagnosis [facility] [address] [address] Aug, [facility] [address] 237[address] 9[address] Jun, [facility] [address] [address] May, Cough R05 and Viral URI J06.9 [facility] [id number] [place] [address] 00193- 9464 May, [facility] [address] [address]- 2257 May, [facility] [address] 04[address]- 7697 May, [facility] [address] 23503- 7006 Apr, Hyperlipidemia LDL goal <[address] [address]- 87[address] Apr, CHIDI positive R76.8 ; Need for hepatitis C screening test Z11.59 ; Diabetes mellitus screening Z13.1 and Vitamin D deficiency E55.9 [place] [address] 25[address]- 7168 Apr, CHIDI positive R76.8 ; Elevated C-reactive protein (CRP) R79.82 ; 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 ; Chronic obstructive pulmonary disease, unspecified COPD type J44.9 ; Need for hepatitis C screening test Z11.59 ; Diabetes mellitus screening Z13.1 ; Other atopic dermatitis L20.89 and Vitamin D deficiency E55.9 [place] [address] [address] Mar, [place] [address] 625[address]- 9575 Mar, Other atopic dermatitis L20.89 [place] [address] 6[address]- 0078 Mar, Dermatitis L30.9 ; CHIDI positive R76.8 ; Elevated C-reactive protein (CRP) R79.82 ; 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 and Chronic obstructive pulmonary disease, unspecified COPD type J44.9 [place] [id number] [place] [address] 30597- 3421 Mar, [facility] [address] [address] [id number] [place] [address] 17370 -1098 Feb, Acute cystitis N30.00 [facility] [address] [place] [address] -2620 Feb, Dysuria R30.0 and Acute cystitis with hematuria N30.01 [facility] [address] [place] [address] 16491 -9877 Dec, Allergic contact dermatitis, unspecified trigger L23.9 and Allergic conjunctivitis of both eyes H10.13 [facility] [address], [place] [address] Nov, Other atopic dermatitis L20.89 [facility] [address], [place] [address] 14 Aug, 2014 [facility] [id number] [place] [address] 40655- 7580 Aug, [facility] [address], [place] [address] 64[address] 08 Jan, 2014 [facility] [id number] [place] [address] 48459- 3090 Jan, [facility] [id number] [place] [address] 15740- 1037 Feb, [facility] [id number] [place] [address] 45338- 5224 18 Feb, 2013 [facility] [address], [place] [address]- 7036 Feb, [facility] [address] [place] [address] 10944- 3081 Feb, [facility] [address], [place] [address]- [address] Nov, [facility] [address], [place] [address]- 9184 18 Aug, 2011 [facility] [address], [place] [address]- 6970 16 Aug, 2011 [facility] [id number] [place] [address] 62992- 0514 15 Aug, 2011 [facility] [address], [place] [address]- 5[address] Aug, [facility] [id number] [place] [address] 47036- 8906 Aug, IMMUNIZATIONS No Known Immunizations SOCIAL HISTORY Never Assessed REASON FOR VISIT Rash----XavierRACHNA, diagnosed with lupus by Dr. Lopez PLAN OF CARE Activity Details Follow Up 4 Weeks Reason:est care VITAL SIGNS Height 67 in 2017-03-18 Weight 177 lbs 2017-03-18 Temperature 97.7 degrees Fahrenheit 2017-03-18 Heart Rate 100 bpm 2017-03-18 Respiratory Rate 20 2017-03-18 BMI 27.72 kg/m2 2017-03-18 Blood pressure systolic 144 mmHg 2017-03-18 Blood pressure diastolic 82 mmHg 2017-03-18 MEDICATIONS Medication Instructions Dosage Frequency Start Date End Date Duration Status Calcium 600 + D 600-200 MG-UNIT Orally twice a day 1 tablet with a meal 12h Active DuoNeb 0.5 mg-3 mg(2.5 mg base)/3 mL 3 mL by Inhalation route 4 times per dayPRN Nov, Active Combivent Respimat 20-100 mcg/actuation inhale 1 puff ; may take additional puffs as needed 4 times per day not to exceed 6 puffs in 24hrs 16 Feb, 2013 Active Mupirocin 2 % Externally Three times a day 1 application to affected area 8h Active Claritin 10 MG Orally Once a day 1 tablet 24h Not-Taking Olopatadine HCl 0.1 % Ophthalmic Twice a day 1 drop into affected eye 12h Dec, 7 days Active Triamcinolone Acetonide 0.1 % Externally Twice a day 1 application to affected area 12h Nov, Active Cholecalciferol 5000 UNIT Orally Once every 7 days 1 capsule Active Advair Diskus 250-50 MCG/DOSE Inhalation Twice a day 1 puff 12h Active [place] 10-325 MG Orally every 6 hrs 1 tablet as needed 6h Not- Taking Albuterol Sulfate 108 (90 Base) MCG/ACT Inhalation every 4 hrs 1 puff as needed 4h Active Ergocalciferol 25227 UNIT 1 capsule Active Zantac 150 MG Orally Once a day 1 tablet at bedtime 24h Not-Taking RESULTS Name Result Date Reference Range PATHOLOGY REPORT (TISSUE PATHOLOGY) 2017-03-18 CLINICAL INFORMATION PATHOLOGIST TISSUE, SPECIMEN A 2017-03-18 A SOURCE A GROSS DESCRIPTION A DIAGNOSIS A COMMENT PROCEDURES Procedure Date Ordered Result Body Site BIOPSY SKIN LESION (SINGLE) 2017-03-18 N/A [facility] VISIT ESTABLISHED PATIENT Mar 18, 2017 BIOPSY OF SKIN LESION Mar 18, 2017 INSTRUCTIONS MEDICATIONS ADMINISTERED No Known Medications MEDICAL (GENERAL) HISTORY Type Description Date Medical History chronic obstructive pulmonary disease (COPD) Surgical History left hip replacement November 2016 Surgical History breast reduction Surgical History exploratory laparoscopy Surgical History dilatation and curettage Surgical History ovarian cyst resection Hospitalization History Surgery and Inpateint Rehab for hip replacment
--- OUTSIDE RECORDS SUMMARY | 2018-08-24 13:14 | XMS REPORT ---
Author Author JANIEAZEB Organization [facility] Address [address] [place] [address] Care Team Providers Care Test Engine Operator Name Role Phone LIMAAZEB Piedra Unavailable PROBLEMS Type Condition ICD9-CM Code [id number] Code Onset Dates Condition Status SNOMED Code Problem Elevated hemoglobin A1c R73.09 Active 566554640 Problem Hyperlipidemia LDL goal <70 E78.5 Active 54116203 Problem Screening for diabetes mellitus Z13.1 Active 164572836 Problem Elevated C-reactive protein (CRP) R79.82 Active 311994987 Problem Chronic obstructive pulmonary disease, unspecified COPD type J44.9 Active 98321672 Problem Vitamin D deficiency E55.9 Active 14736777 Problem Other atopic dermatitis L20.89 Active 41890942 Problem CHIDI positive R76.8 Active 483353886 Problem 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 754434989 ALLERGIES No Information ENCOUNTERS Encounter Location Date Diagnosis [facility] [address] [address] Aug, [facility] [id number] [place] [address] 94261- 6977 Jun, [facility] [id number] [place] [address]45 -[address] May, Cough R05 and Viral URI J06.9 [facility] [id number] [place] [address] 61613- 2029 May, [facility] [address] [address] May, [facility] [id number] [place] [address] 75335- 3531 May, [facility] [address] [address] Apr, Hyperlipidemia LDL goal <70 E78.5 [place] [address] 79[address]- 3410 Apr, CHIDI positive R76.8 ; Need for hepatitis C screening test Z11.59 ; Diabetes mellitus screening Z13.1 and Vitamin D deficiency E55.9 [place] [address] [address]- 3266 Apr, CHIDI positive R76.8 ; Elevated C-reactive protein (CRP) R79.82 ; 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 ; Chronic obstructive pulmonary disease, unspecified COPD type J44.9 ; Need for hepatitis C screening test Z11.59 ; Diabetes mellitus screening Z13.1 ; Other atopic dermatitis L20.89 and Vitamin D deficiency E55.9 [place] [address] [address]- [address]2 Mar, [place] [address] 69[address]- 7880 Mar, Other atopic dermatitis L20.89 [place] [address] 85[address]- 5251 Mar, Dermatitis L30.9 ; CHIDI positive R76.8 ; Elevated C-reactive protein (CRP) R79.82 ; 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 and Chronic obstructive pulmonary disease, unspecified COPD type J44.9 [place] [id number] [place] [address] 54572- 4938 Mar, [facility] [id number] [place] [address] 35990 -1682 Feb, [facility]is N30.00 [facility] [address] [place] [address] -[address] Feb, Dysuria R30.0 and Acute cystitis with hematuria N30.01 [facility] [address] [place] [address] 84503 -[address] Dec, Allergic contact dermatitis, unspecified trigger L23.9 and Allergic conjunctivitis of both eyes H10.13 [facility] [address], [place] [address] Nov, Other atopic dermatitis L20.89 [facility] [address], [place] [address] 14 Aug, 2014 [facility] [id number] [place] [address] 75008- 5748 Aug, [facility] [id number] [place] [address] 14995- 0609 08 Jan, 2014 [facility] [id number] [place] [address] 39104- 5932 Jan, [facility] [id number] [place] [address] 30502- 7747 Feb, [facility] [id number] [place] [address] 30763- 1924 Feb, [facility] [id number] [place] [address] 87591- 1331 Feb, [facility] [id number] [place] [address] 38938- 4752 Feb, [facility] [address], [place] [address]- 5[address] Nov, [facility] [address] [place] [address] 95630- 1681 18 Aug, 2011 [facility] [address], [place] [address]- 64[address] 16 Aug, 2011 [facility] [id number] [place] [address] 28611- 4390 15 Aug, 2011 [facility] [id number] [address] 2[address] Aug, [facility] [id number] [place] [address] 56865- 5393 Aug, IMMUNIZATIONS No Known Immunizations SOCIAL HISTORY Never Assessed REASON FOR VISIT per lab results PLAN OF CARE VITAL SIGNS MEDICATIONS Medication Instructions Dosage Frequency Start Date End Date Duration Status Atorvastatin Calcium 20 mg Orally Once a day 1 tablet 24h Apr, 30 day(s) Active RESULTS No Results PROCEDURES No Known procedures INSTRUCTIONS MEDICATIONS ADMINISTERED No Known Medications MEDICAL (GENERAL) HISTORY Type Description Date Medical History chronic obstructive pulmonary disease (COPD) Surgical History left hip replacement November 2016 Surgical History breast reduction Surgical History exploratory laparoscopy Surgical History dilatation and curettage Surgical History ovarian cyst [facility]
--- OUTSIDE RECORDS SUMMARY | 2018-08-24 13:15 | XMS REPORT | Continuity of Care Document ---
Author Organization Unknown Address Unknown Allergies There is no data. Medications There is no data. Problems Date Dx Coded Attending Type Code Diagnosis Diagnosed By 08/15/2011 WHITE DDS FRANK D 305.1 NICOTINE DEPENDENCE 08/15/2011 WHITE DDS, FRANK D 496 CHRONIC OBSTRUCTIVE PULMONARY DISEASE 08/15/2011 WHITE DDS, FRANK D V76.19 Breast Cancer Screening 08/15/2011 WHITE DDS, FRANK D V76.2 Cervical Pap Smear 08/15/2011 WHITE DDS, FRANK D 305.1 NICOTINE DEPENDENCE 08/15/2011 WHITE DDS, FRANK D 496 CHRONIC OBSTRUCTIVE PULMONARY DISEASE 08/15/2011 WHITE DDS, FRANK D V76.19 Breast Cancer Screening 08/15/2011 WHITE DDS, FRANK D V76.2 Cervical Pap Smear 02/18/2013 WHITE DDS, FRANK D 521.00 DENTAL CARIES 02/18/2013 WHITE DDS, FRANK D 719.45 PAIN- HIP 02/18/2013 WHITE DDS, FRANK D 521.00 DENTAL CARIES 02/18/2013 WHITE DDS, FRANK D 719.45 PAIN- HIP 07/24/2018 WINDY MACDONALD, NICK Tuttle Ot Z12.31 ENCNTR SCREEN MAMMOGRAM FOR MALIGNANT NE Procedures Code [place] [address] ROUTINE VENIPUNCTURE 02/18/2013 91668 XRAY HIP LEFT UNILATERAL MIN 2 VIEWS 02/18/2013 56816 XRAY KNEE LEFT 3 VIEWS 02/18/2013 10112 CBC 02/18/2013 66429 CMP 02/18/2013 [id number] GFR CALC (RESULT ONLY) 02/18/2013 Results Test Result Range CULTURE, URINE - 02/08/17 15:17 Urine Culture, Routine Final report NRG Result 1 Proteus mirabilis NRG Antimicrobial Susceptibility NRG Urine Culture, Routine - 02/08/17 15:17 Urine Culture, Routine Note TISSUE, SPECIMEN A - 03/18/17 18:41 A SOURCE NRG A GROSS DESCRIPTION NRG A DIAGNOSIS NRG A COMMENT NRG A1C - 04/12/17 11:01 HEMOGLOBIN A1c 5.7 % of total Hgb <5.7 Encounters ACCT No. Visit Date/Time Discharge Status Pt. Type Provider Facility Loc./Unit Complaint [id number] 02/24/2013 13:30:00 02/24/2013 23:59:59 CLS Outpatient FRANK YUN DDS [id number] 02/19/2013 12:39:00 02/19/2013 23:59:59 CLS Outpatient FRANK YUN DDS [id number] 05/17/2017 12:35:00 05/17/2017 23:59:59 CLS Outpatient [facility] [id number] 04/12/2017 11:00:00 Document Registration [id number] 03/18/2017 18:20:00 Document Registration [id number] 02/08/2017 15:00:00 Document Registration [id number] 07/29/2018 10:30:00 07/29/2018 23:59:59 CLS Preadmit WINDY MACDONALD, NICK Tuttle [facility] RAD SCREENING [id number] 03/09/2013 14:20:00 03/09/2013 23:59:59 CLS Outpatient [id number] 08/24/2018 13:08:00 ACT Emergency ROSENDO MACDONALD, SHARI Rodríguez [facility] ER R EAR/HEAD/NECK PAIN [id number] 02/10/2017 19:06:00 Document Registration
[2018-08-24] MEDS ORDERED: ATOR20TA66 (13:26)
[2018-08-24] MEDS ORDERED: FLUT1DIS26 (13:26)
[2018-08-24] MEDS ORDERED: PRD20T PO (13:59)
--- NOTE | 2018-08-24 13:59 | ED General ---
General Chief Complaint: Cough/Cold/Flu Symptoms Stated Complaint: R EAR/HEAD/NECK PAIN Nursing Triage Note: ARRIVED VIA AMB TO ROOM 05. WITH COMPLAINTS OF RIGHT HEAD, EAR, NECK PAIN STARTING YESTERDAY. Nursing Sepsis Screen: No Definite Risk Source of Information: Patient Exam Limitations: No Limitations History of Present Illness Date Seen by Provider: Aug 24, 2018 Time Seen by Provider: 13:42 Initial Comments This 63-year-old woman presents to the emergency room with several complaints. Couple days ago she had some dyspnea at night. She also has had some throat discomfort and earache as well as headache. She has been taking Flonase and Gaviscon. She said today while she had her headache some people at [facility] thought they noticed some facial droop. This is not present now. Patient took some Tylenol and hydrocodone at home and headache is much better now. Patient reports having significant problems with seasonal allergies. She is not routinely taking an antihistamine. Her headache is posterior on the right and seems to be associated with muscle tension in her neck. Patient had similar head and neck symptoms in the past that were successfully treated with a steroid Dosepak. Allergies and Home Medications Allergies Coded Allergies: No Known Drug Allergies (Unverified , 08/24/18) Home Medications Prednisone 20 Mg Tab, 1 TAB PO DAILY Prescribed by: SHARI WINTERS on 08/24/18 2739 Patient Home Medication List Home Medication List Reviewed: Yes Review of Systems Review of Systems Constitutional: no symptoms reported EENTM: see HPI Respiratory: see HPI Cardiovascular: no symptoms reported Gastrointestinal: no symptoms reported Genitourinary: no symptoms reported : No Musculoskeletal: see HPI Skin: no symptoms reported Psychiatric/Neurological: See HPI Hematologic/Lymphatic: No Symptoms Reported Past Vwbumve-Noppqi-Truytd Hx Patient Social History Recent Foreign Travel: No Contact w/Someone Who Travel: No Recent Infectious Disease Expo: No Seasonal Allergies Seasonal Allergies: Yes Past Medical History Surgeries: Yes (Ovarian cyst, D&C) Breast, Joint Replacement (Left hip), Tonsillectomy Respiratory: No Cardiac: No Neurological: No : No Reproductive Disorders: Yes Female Reproductive Disorders: Endometriosis Genitourinary: No Gastrointestinal: No Musculoskeletal: No Endocrine: Yes (Vitamin D deficiency) HEENT: No Cancer: No Psychosocial: No Physical Exam Vital Signs Vital Signs - First Documented 08/24/18 13:12 Temp 97.5 Pulse 73 Resp 16 B/P (MAP) 155/90 (111) Pulse Ox 97 O2 Delivery Room Air Capillary Refill : Less Than 3 Seconds Height, Weight, BMI Height: 5'7.00" Weight: 170lbs. oz. 77.866466na; BMI Method:Stated General Appearance: No Apparent Distress, WD/WN HEENT: PERRL/EOMI, Normal ENT Inspection, Pharynx Normal, TM Abnormal (R) ( Serous effusion) Neck: Normal Inspection, Other (Muscle tension on the left) Respiratory: Lungs Clear, Normal Breath Sounds, No Accessory Muscle Use, No Respiratory Distress Cardiovascular: Regular Rate, Rhythm, No Edema, No Murmur Gastrointestinal: Non Tender, Soft Extremity: Normal Inspection, No Pedal Edema Neurologic/Psychiatric: Alert, Oriented x3, No Motor/Sensory Deficits, Normal Mood/Affect, steam hand II-XII Norm as Tested Skin: Normal Color, Warm/Dry Progress/Results/Core Measures Suspected Sepsis Recent Fever Within 48 Hours: No Infection Criteria Present: Suspected New Infection New/Unexplained Altered Menta: No Sepsis Screen: No Definite Risk SIRS Temperature:97.5 Pulse: 73 Respiratory Rate: 16 Blood Pressure 155 /90 Mean: 111 Results/Orders Vital Signs/I&O 08/24/18 08/24/18 13:12 14:06 Temp 97.5 97.5 Pulse 73 73 Resp 16 16 B/P (MAP) 155/90 (111) 155/90 (111) Pulse Ox 97 97 O2 Delivery Room Air Capillary Refill : Less Than 3 Seconds Blood Pressure Mean: 111 Departure Impression Primary Impression: Right-sided headache Additional Impressions: Seasonal allergies Muscle tension headache Disposition: 01 HOME, SELF-CARE Condition: Stable Departure-Patient Inst. Decision time for Depature: 13:56 Referrals: NICK TEMPLE MD (PCP/Family) Primary Care Physician Patient Instructions: Headache, Adult Add. Discharge Instructions: For allergy symptoms may continue using an lcnd-fvy-ashbfjy allergy medication such as Claritin or Zyrtec. Continue to do with your nasal steroid spray ( fluticasone/Flonase) as well. Drink plenty of clear liquids. For muscle tension in your neck, try gentle heat such as a heating pad on low, warm moist cloth, or warm shower or bath. For primary pain management, try ibuprofen up to 600 mg every 6 hours as needed. If this does not give sufficient relief, you may add Tylenol ( acetaminophen) or your hydrocodone. Complete the steroids as prescribed. Follow-up with your primary care provider if this does not resolve your symptoms. Return to the ER if symptoms are worsening. All discharge instructions reviewed with patient and/or family. Voiced understanding. Scripts Prednisone (Prednisone) 20 Mg Tab 1 TAB PO DAILY, #4 TAB Prov: SHARI ROBBINS MD 08/24/18 SHARI ROBBINS MD Aug 24, 2018 13:59
[2018-08-24 14:06] VITALS: BP 155/90
== END 2018-08-24 14:04 | disposition home or self-care (01) ==
LOC: EDUNIT# 13:07 → ER 13:08
DX: J30.2 Other seasonal allergic rhinitis (principal); G44.209 Tension-type headache, unspecified, not intractable; Z90.89 Acquired absence of other organs; Z87.448 Personal history of other diseases of urinary system; Z96.642 Presence of left artificial hip joint; Z98.890 Other specified postprocedural states
CPT/HCPCS: 99282

== ENCOUNTER → 2018-11-11 | Outpatient (CLI) | payer MEDICARE, MEDICAID ==
[~2018-11-11] MED LIST: ATOR20TA66; FLUT1DIS26; PRD20T PO
--- NOTE | 2018-11-14 17:04 | Diagnostic Imaging Report ---
INDICATION: Routine screening. Comparison is made with prior mammograms from 07/01/2017 and 01/03/2015. 2-D and 3-D bilateral screening mammography was performed. The current study was also evaluated with a Computer Aided Detection (CAD) system. 3-D tomosynthesis was also performed and reviewed. FINDINGS: Both breasts are heterogeneously dense, limiting the sensitivity of mammography. Benign nodule in upper-outer left breast is stable. No new mass or malignant-appearing microcalcifications are seen. There are benign calcifications present. The axillae are unremarkable. IMPRESSION: No mammographic features suspicious for malignancy are identified. ACR BI-RADS Category 2: Benign findings. Result letter will be mailed to the patient. Note: At least 10% of breast cancer is not imaged by mammography. Dictated by: Dictated on workstation # [id number]
== END ==
LOC: RAD 15:43
PROVIDERS: ATTEND Pediatrics
DX: Z12.31 Encounter for screening mammogram for malignant neoplasm of breast (principal)
CPT/HCPCS: 77067

== ENCOUNTER → 2020-06-06 | Outpatient (CLI) | payer MEDICARE, MEDICAID ==
--- NOTE | 2020-06-06 11:55 | Diagnostic Imaging Report ---
INDICATION: Shortness of breath. FINDINGS: The heart size, mediastinal configuration, and pulmonary vascularity are within normal limits. There is no pleural effusion, pneumothorax, or pneumonia. The osseous structures are unremarkable. IMPRESSION: No acute cardiopulmonary abnormality. Dictated by: Dictated on workstation # [id number]
--- NOTE | 2020-06-06 12:16 | Diagnostic Imaging Report ---
INDICATION: Postprandial abdominal distention. COMPARISON: None FINDINGS: Single supine radiograph view of the abdomen was obtained and demonstrates nondistended loops of small bowel. There is no large collection of free intraperitoneal air. No unexpected extraosseous calcifications or radiopaque foreign bodies are seen. Postsurgical changes of previous bilateral hip replacements are noted. IMPRESSION: 1. Nonobstructed small bowel gas pattern. Dictated by: Dictated on workstation # [id number]
--- NOTE | 2020-06-06 15:49 | Diagnostic Imaging Report ---
INDICATION: Routine screening. COMPARISON: 01/23/2019 and 07/01/2017. TECHNIQUE: 2D and 3D bilateral screening mammography was performed with CAD. FINDINGS: Both breasts are heterogeneously dense, limiting the sensitivity of mammography. The benign nodule in the upper outer left breast is stable. There are benign calcifications present. No spiculated mass or malignant appearing microcalcifications are seen. The axillae are unremarkable. IMPRESSION: No mammographic features suspicious for malignancy are identified. ACR BI-RADS Category 2: Benign findings. Result letter will be mailed to the patient. Note: At least 10% of breast cancer is not imaged by mammography. Dictated by: Dictated on workstation # [id number]
== END ==
LOC: RAD 10:49
PROVIDERS: ATTEND Family Medicine
DX: Z12.31 Encounter for screening mammogram for malignant neoplasm of breast (principal); J44.9 Chronic obstructive pulmonary disease, unspecified; R14.0 Abdominal distension (gaseous)
CPT/HCPCS: 71046; 74018; 77063; 77067

== ENCOUNTER → 2020-06-14 | Outpatient (CLI) | payer MEDICARE, MEDICAID ==
--- NOTE | 2020-06-14 13:59 | Diagnostic Imaging Report ---
INDICATION: Postmenopausal state. COMPARISON: None available. FINDINGS: AP Spine L1-L4: [BMD (g/cm2): 1.077] [T-Score: -1.0] [Z-Score: -0.3] [BMD Previous: NA] [BMD % Change: NA] LT Hip Neck: [BMD (g/cm2): NA] [T-Score: NA] [Z-Score: NA] LT Hip Total: [BMD (g/cm2):NA] [T-Score:NA] [Z-Score: NA] [BMD Previous: NA] [BMD % Change: NA] RT Hip Neck: [BMD (g/cm2):NA] [T-Score:NA] [Z-Score:NA] RT Hip Total: [BMD (g/cm2):NA] [T-score:NA] [Z-Score:NA] [BMD Previous:NA] [BMD % Change:NA] Right forearm: Radius UD: T score -0.5 Z score: 0.9 *Indicates significant change from prior examination based on 95% confidence level. World Health Organization criteria for BMD interpretation classify patients as Normal (T-score at or above -1.0), Osteopenic (T-score between -1.0 and -2.5) or Osteoporotic (T-score at or below -2.5). LIMITATIONS AND MODIFICATION: The bilateral hips were not evaluated secondary to postsurgical changes. IMPRESSION: 1. Normal bone mineral density. 2. Baseline examination. 3. See below National Osteoporosis Foundation guidelines on when to potentially initiate pharmacologic therapy. Based on the National Osteoporosis Foundation Guidelines, pharmacologic treatment should be initiated in any of the following, unless clinical conditions suggest otherwise: * Any patient with prior fragility fracture of the hip or vertebrae. A spine fracture indicates 5X risk for subsequent spine fracture and 2X risk for subsequent hip fracture. * Osteoporosis (T-score <-2.5). * Postmenopausal women and men age 50 and older with low bone mass/osteopenia (T-score between -1.0 and -2.5) by DXA and 10-year major osteoporotic fracture greater than 20% or a 10-year probability of hip fracture greater than 3%. These fracture risks are supplied above in the FRAX score, if applicable. * Clinician judgement and/or patient preferences may indicate treatment for people with 10-year fracture probabilities above or below these levels. Dictated by: Dictated on workstation # [id number]
== END ==
LOC: RAD 12:25
PROVIDERS: ATTEND Family Medicine
DX: J44.9 Chronic obstructive pulmonary disease, unspecified (principal); N95.9 Unspecified menopausal and perimenopausal disorder; R14.0 Abdominal distension (gaseous)
CPT/HCPCS: 77080

== ENCOUNTER → 2020-07-15 | Outpatient (CLI) | payer MEDICARE, MEDICAID ==
[~2020-07-15] MED LIST changes: +CATHETER FLUSH 10 ML SYR IV PRN; +HOLD METFORMIN - RECEIVED CONTRAST 20 ML VIAL IV SCH; +IOHEXOL 350 MG/ML 100 ML (OMNIPAQUE 350) VIAL IV ONE; +NS 100 ML (IVPB) BAG IV ONE; +RT-ALBUTEROL SULF 2.5 MG/3 ML PRE-MIX VIAL INH ONE
[2020-07-15 07:54] LABS: CREATININE SERUM 0.87 MG/DL (0.60-1.30); GFR ESTIMATED > 60
[2020-07-15 07:55] LABS: BUN/CREATININE RATIO 21
--- NOTE | 2020-07-15 13:06 | Diagnostic Imaging Report ---
PROCEDURE: CT chest with contrast only. TECHNIQUE: Multiple contiguous axial images were obtained through the chest after administration of intravenous contrast. Auto Exposure Controls were utilized during the CT exam to meet ALARA standards for radiation dose reduction. INDICATION: Dyspnea. COMPARISON: None available. FINDINGS: Several calcified mediastinal and left hilar lymph nodes are present. No pathologically enlarged lymph nodes within the chest. Mild scattered vascular calcifications. No aneurysmal dilatation of the thoracic aorta. The heart is within normal limits in size. No pericardial effusion. No pleural effusion. No pneumothorax. Calcified granuloma within the left upper lobe. The lungs are otherwise clear of focal pulmonary opacity. Cyst within the right hepatic lobe. Liver demonstrates diffusely decreased density throughout. Calcified splenic granuloma. Visualized upper abdomen is otherwise unremarkable. Several loose bodies are noted associated with the left shoulder. Scattered osseous degenerative changes without acute osseous abnormality. IMPRESSION: No acute abnormality. Evidence of chronic granulomatous disease. Degenerative changes with associated loose bodies within the left shoulder. Dictated by: Dictated on workstation # [id number]
== END ==
LOC: RT 08:00
PROVIDERS: ATTEND Internal Medicine Critical Care Medicine
DX: Z13.83 Encounter for screening for respiratory disorder NEC (principal); R06.00 Dyspnea, unspecified; D71 Functional disorders of polymorphonuclear neutrophils; M19.012 Primary osteoarthritis, left shoulder
CPT/HCPCS: 36415; 36600; 71260; 82565; 84520; 94060; 94726; 94729

== ENCOUNTER 2021-05-01 11:57 | Emergency (ER) | payer MEDICARE, MEDICAID ==
[~2021-05-01] VITALS: Ht 170 cm; Wt 86.0 kg
[~2021-05-01 11:57] MED LIST changes: -CATHETER FLUSH 10 ML SYR IV PRN; -HOLD METFORMIN - RECEIVED CONTRAST 20 ML VIAL IV SCH; -IOHEXOL 350 MG/ML 100 ML (OMNIPAQUE 350) VIAL IV ONE; -NS 100 ML (IVPB) BAG IV ONE; -RT-ALBUTEROL SULF 2.5 MG/3 ML PRE-MIX VIAL INH ONE
[2021-05-01] MEDS ORDERED: ASPIRIN 81 MG CHEW (CHILDREN'S ASA) PO ONE (12:15)
--- NOTE | 2021-05-01 12:15 | ED Chest Pain ---
General Chief Complaint: Chest Pain Stated Complaint: CP,NAUSEA,ABD/BACK PAIN Nursing Triage Note: PT STATES CHEST PAIN FOR ABOUT A WEEK, THROUGH TO HER BACK THE LAST COUPLE NIGHTS. Source: patient Exam Limitations: no limitations History of Present Illness Date Seen by Provider: May 01, 2021 Time Seen by Provider: 12:14 Initial Comments To ER with epigastric and lower central chest pain intermittently for about 3 weeks. She was able to calm this down last night with drinking some pickle juice. Sometimes eating oatmeal helps. Some foods make it worse. This p articular episode has been constant since awakening this morning. She had some nausea with it and a little shortness of breath while in the waiting room. No fevers or chills. Tested negative for Covid 2 days before Rashida. No cardiac history. No diarrhea. Timing/Duration: changing over time Severity/Quality: moderate Location: epigastric Radiation: no radiation Activities at Onset: none Prior CP/Workup: no prior chest pain ASA po PAVING BED MAKER: No NTG SL PAVING BED MAKER: No Allergies and Home Medications Allergies Coded Allergies: No Known Drug Allergies (Unverified , 08/24/18) Patient Home Medication List Home Medication List Reviewed: Yes Atorvastatin Calcium (Atorvastatin Calcium) 20 Mg Tablet, (Reported) Entered as Reported by: JOSE RAMON TOMLINSON on 08/24/18 1326 Fluticasone/Salmeterol (Advair 250-50 Diskus) 1 Each Blst.w.dev, (Reported) Entered as Reported by: JOSE RAMON TOMLINSON on 08/24/18 1326 Prednisone (Prednisone) 20 Mg Tab, 1 TAB PO DAILY Prescribed by: SHARI WINTERS on 08/24/18 1359 Review of Systems Review of Systems Constitutional: see HPI EENTM: No Symptoms Reported Respiratory: No Symptoms Reported Cardiovascular: See HPI, Chest Pain Gastrointestinal: See HPI, Abdominal Pain, Nausea Genitourinary: No Symptoms Reported Musculoskeletal: no symptoms reported Skin: no symptoms reported Psychiatric/Neurological: No Symptoms Reported Endocrine: No Symptoms Reported Hematologic/Lymphatic: No Symptoms Reported Past Gnykukt-Fybkpg-Fgnzrs Hx Patient Social History Tobacco Use?: No Use of E-Cig and/or Vaping dev: No Substance use?: No Alcohol Use?: No Seasonal Allergies Seasonal Allergies: Yes Past Medical History Surgeries: Yes (Ovarian cyst, D&C) Breast, Joint Replacement, Tonsillectomy Respiratory: No Cardiac: No Neurological: No Reproductive Disorders: Yes Female Reproductive Disorders: Endometriosis Genitourinary: No Gastrointestinal: No Musculoskeletal: No Endocrine: Yes (Vitamin D deficiency) HEENT: No Cancer: No Psychosocial: No Physical Exam Vital Signs Vital Signs - First Documented 05/01/21 12:01 Temp 36.4 Pulse 88 Resp 20 B/P (MAP) 175/86 (115) Pulse Ox 98 O2 Delivery Room Air Capillary Refill : Height, Weight, BMI Height: 5'7.00" Weight: 170lbs. oz. 77.767247xz; 29.00 BMI Method:Stated General Appearance: No Apparent Distress, WD/WN, Obese Neck: Full Range of Motion, Normal Inspection Respiratory: No Accessory Muscle Use, No Respiratory Distress Cardiovascular: Regular Rate, Rhythm, Normal Peripheral Pulses Gastrointestinal: Normal Bowel Sounds, Soft, Tenderness (Epigastric) Extremity: Normal Capillary Refill, Normal Inspection Neurologic/Psychiatric: Alert, Oriented x3 Skin: Normal Color, Warm/Dry Progress/Results/Core Measures Results/Orders Lab Results Laboratory Tests Test 05/01/21 12:10 05/01/21 14:35 Range/Units White Blood Count 8.1 4.3-11.0 10^3/uL Red Blood Count 4.99 3.80-5.11 10^6/uL Hemoglobin 14.2 11.5-16.0 g/dL Hematocrit 44 35-52 % Mean Corpuscular Volume 87 80-99 fL Mean Corpuscular Hemoglobin 29 25-34 pg Mean Corpuscular Hemoglobin Concent 33 32-36 g/dL Red Cell Distribution Width 13.4 10.0-14.5 % Platelet Count 257 130-400 10^3/uL Mean Platelet Volume 9.1 9.0-12.2 fL Immature Granulocyte % (Auto) 1 % Neutrophils (%) (Auto) 53 42-75 % Lymphocytes (%) (Auto) 32 12-44 % Monocytes (%) (Auto) 9 0-12 % Eosinophils (%) (Auto) 6 0-10 % Basophils (%) (Auto) 1 0-10 % Neutrophils # (Auto) 4.3 1.8-7.8 10^3/uL Lymphocytes # (Auto) 2.6 1.0-4.0 10^3/uL Monocytes # (Auto) 0.7 0.0-1.0 10^3/uL Eosinophils # (Auto) 0.5 H 0.0-0.3 10^3/uL Basophils # (Auto) 0.0 0.0-0.1 10^3/uL Immature Granulocyte # (Auto) 0.1 0.0-0.1 10^3/uL Prothrombin Time 13.4 12.2-14.7 SEC INR Comment 1.0 0.8-1.4 Activated Partial Thromboplast Time 29 24-35 SEC Sodium Level 139 135-145 MMOL/L Potassium Level 3.9 3.6-5.0 MMOL/L Chloride Level 105 98-107 MMOL/L Carbon Dioxide Level 24 21-32 MMOL/L Anion Gap 10 5-14 MMOL/L Blood Urea Nitrogen 16 7-18 MG/DL Creatinine 0.86 0.60-1.30 MG/DL Estimat Glomerular Filtration Rate 66 BUN/Creatinine Ratio 19 Glucose Level 89 70-105 MG/DL Calcium Level 9.5 8.5-10.1 MG/DL Corrected Calcium 9.3 8.5-10.1 MG/DL Magnesium Level 2.2 1.6-2.4 MG/DL Total Bilirubin 0.6 0.1-1.0 MG/DL Aspartate Amino Transf (AST/SGOT) 133 H 5-34 U/L Alanine Aminotransferase (ALT/SGPT) 128 H 0-55 U/L Alkaline Phosphatase 68 40-136 U/L Myoglobin 45.0 10.0-92.0 NG/ML Troponin I < 0.028 < 0.028 <0.028 NG/ML Total Protein 7.3 6.4-8.2 GM/DL Albumin 4.3 3.2-4.5 GM/DL Lipase 34 8-78 U/L My Orders Orders - CHARITY REDDY APRN Cbc With Automated Diff (05/01/21 12:02) Magnesium (05/01/21 12:02) Chest 1 View, Ap/Pa Only (05/01/21 12:02) Ekg Tracing (05/01/21 12:02) Comprehensive Metabolic Panel (05/01/21 12:02) Myoglobin Serum (05/01/21 12:02) Protime With Inr (05/01/21 12:02) Partial Thromboplastin Time (05/01/21 12:02) O2 (05/01/21 12:02) Monitor-Rhythm Ecg Trace Only (05/01/21 12:02) Lipid Panel (05/02/21 06:00) Ed Iv/Invasive Line Start (05/01/21 12:02) Troponin I [place] (05/01/21 12:02) Aspirin Chewable Tablet (Baby Aspirin Ch (05/01/21 12:15) Lipase (05/01/21 12:13) Us Gallbladder [id number] (05/01/21 12:13) Antacid Suspension (Mylanta Suspension (05/01/21 13:00) Lidocaine 2% Viscous 15 Ml (Xylocaine Vi (05/01/21 13:00) Ct Abdomen/Pelvis W (05/01/21 13:34) Iohexol Injection (Omnipaque 350 Mg/Ml 1 (05/01/21 14:00) Received Contrast (Hold Metformin- Contr (05/01/21 14:00) Ns (Ivpb) (Sodium Chloride 0.9% Ivpb Bag (05/01/21 14:00) Troponin I [place] (05/01/21 14:30) Medications Given in ED Current Medications Medications Dose Ordered Sig/Rolando Route Start Time Stop Time Status Last Admin Dose Admin Al Hydrox/Mg Hydrox/Simethicone 30 ml ONCE ONCE PO 05/01/21 13:00 05/01/21 13:01 DC 05/01/21 13:11 30 ML Aspirin 324 mg ONCE ONCE PO 05/01/21 12:15 05/01/21 12:16 DC 05/01/21 12:17 324 MG Iohexol 100 ml ONCE ONCE IV 05/01/21 14:00 05/01/21 14:01 DC 05/01/21 14:01 100 ML Lidocaine HCl 15 ml ONCE ONCE PO 05/01/21 13:00 05/01/21 13:01 DC 05/01/21 13:11 15 ML Sodium Chloride 100 ml ONCE ONCE IV 05/01/21 14:00 05/01/21 14:01 DC 05/01/21 14:01 80 ML Vital Signs/I&O 05/01/21 12:01 Temp 36.4 Pulse 88 Resp 20 B/P (MAP) 175/86 (115) Pulse Ox 98 O2 Delivery Room Air Blood Pressure Mean: 115 Departure Communication (Admissions) NAME: KAREN BURROWS MED REC#: [id number] PT STATUS: REG ER : 1955 PHYSICIAN: CHARITY REDDY APRN ADMIT DATE: 05/01/21/ER Draft Date of Exam:05/01/21 CHEST 1 VIEW, AP/PA ONLY INDICATION: Chest pain. AP view of the chest is obtained. FINDINGS: Overall heart size and pulmonary vascularity are within normal limits. There is no evidence of pneumothorax. There is air trapping bilaterally. No consolidation is seen. There is no evidence of pleural fluid. Calcifications project over the anterior aspect of the left shoulder joint, which may represent osteochondromatosis or loose body. IMPRESSION: Background emphysema without acute abnormality seen in the chest. There are possible loose bodies in the left shoulder joint, and clinical correlation would be useful. Dictated on workstation # [id number] Dict: 05/01/21 1311 Trans: 05/01/21 [id number] Interpreted by: JANET JAMES MD Electronically signed by: Family Conversation NAME: KAREN BURROWS [facility] REC#: [id number] PT STATUS: REG ER : 1955 PHYSICIAN: CHARITY REDDY APRN ADMIT DATE: 05/01/21/ER Draft Date of Exam:05/01/21 US GALLBLADDER [id number] PROCEDURE: US Gallbladder. TECHNIQUE: Multiple real-time grayscale images were obtained over the right upper quadrant in various projections. INDICATION: Epigastric pain. FINDINGS: Liver is echogenic and measures 22 cm in length. There is a probable 3.5 cm cyst in the dome of the liver without other focal hepatic abnormality identified. Gallbladder is obscured by overlying bowel. Gallbladder has a normal appearance without filling defect. Pancreas is also unremarkable. Retroperitoneal aorta and inferior vena cava are obscured. Right kidney has a normal appearance, and there is no evidence of free fluid. IMPRESSION: Hepatomegaly with fatty metamorphosis. Otherwise, no acute abnormality is seen within the abdomen or pelvis on study limited by patient body habitus and gas-containing bowel. Dictated on workstation # [id number] Dict: 05/01/21 1309 Trans: 05/01/21 1314 [id number] Interpreted by: JANET JAMES MD Electronically signed by: NAME: KAREN BURROWS [facility] REC#: [id number] PT STATUS: REG ER : 1955 PHYSICIAN: CHARITY REDDY APRN ADMIT DATE: 05/01/21/ER Draft Date of Exam:05/01/21 CT ABDOMEN/PELVIS W PROCEDURE: CT abdomen and pelvis with contrast. TECHNIQUE: Multiple contiguous axial images were obtained through the abdomen and pelvis after administration of intravenous contrast. Auto Exposure Controls were utilized during the CT exam to meet ALARA standards for radiation dose reduction. All CT scans use one or more of the following dose optimizing techniques: Automated exposure control, MA and/or KvP adjustment based on patient size and exam type or iterative reconstruction. INDICATION: Epigastric pain. COMPARISON: Liver gallbladder sonogram from earlier same day. FINDINGS: Included portions of the lung bases are clear. CT ABDOMEN: Small bowel loops are nondistended. Normal appendix is identified. Liver is diffusely hypodense on this postcontrast exam. Findings are consistent with hepatic steatosis. Benign-appearing cyst is noted within the dome of the right lobe of the liver. No suspicious enhancing hepatic masses are identified. The kidneys, adrenal glands, spleen, and pancreas have a normal CT appearance. There is no loculated fluid collection, free fluid, nor free air within the abdomen. No abnormal mesenteric or retroperitoneal adenopathy is identified. Osseous structures show no acute abnormalities. Hrrd-zj-dpphnusz scattered calcified and noncalcified aortic and arterial atherosclerosis is noted. Osseous structures show no acute abnormalities. CT PELVIS: Pelvis is moderately partially obscured secondary to metallic beam hardening artifact from bilateral hip prostheses. There is no loculated fluid collection, free fluid, or free air. No abnormal adenopathy is seen. Urinary bladder is not well assessed. IMPRESSION: 1. No acute abnormalities are seen within the abdomen or pelvis. 2. Hepatic steatosis and benign-appearing hepatic cyst. Dictated on workstation # [id number] Dict: 05/01/21 1424 Trans: 05/01/21 1432 [id number] Interpreted by: LIAM RIVERA MD Electronically signed by: [id number] EKG shows sinus rhythm rate of [address] segment changes normal intervals 1334-after the GI cocktail her epigastric abdominal pain is now completely gone. She has some persistent mild mid thoracic back pain Impression Primary Impression: Gastritis Disposition: 01 HOME, SELF-CARE Condition: Stable Departure-Patient Inst. Decision time for Depature: 15:18 Referrals: JED DUVALL MD (PCP) Primary Care Physician Patient Instructions: Gastritis ED Add. Discharge Instructions: 1. Medication as directed. Follow-up with Dr. Duvall later this week for recheck return ER for any worsening. All discharge instructions reviewed with patient and/or family. Voiced understanding. Scripts Pantoprazole Sodium (Protonix) 40 Mg Tablet. 40 MG PO DAILY, #30 TAB Prov: CHARITY REDDY APRN 05/01/21 CHARITY REDDY APRN May 01, 2021 12:15
[2021-05-01 12:24] LABS: BASOPHILS % (AUTO) 1 % (0-10); EOSINOPHILS # (AUTO) 0.5 10^3/uL (0.0-0.3); EOSINOPHILS % (AUTO) 6 % (0-10); HEMATOCRIT 44 % (35-52); HEMOGLOBIN 14.2 g/dL (11.5-16.0); LYMPHOCYTES # (AUTO) 2.6 10^3/uL (1.0-4.0); LYMPHOCYTES % (AUTO) 32 % (12-44); MEAN CORPUSCULAR HEMOGLOBIN 29 pg (25-34); MEAN CORPUSCULAR HGB CONC 33 g/dL (32-36); MEAN CORPUSCULAR VOLUME 87 fL (80-99); MEAN PLATELET VOLUME 9.1 fL (9.0-12.2); MONOCYTES # (AUTO) 0.7 10^3/uL (0.0-1.0); MONOCYTES % (AUTO) 9 % (0-12); NEUTROPHILS # (AUTO) 4.3 10^3/uL (1.8-7.8); NEUTROPHILS % (AUTO) 53 % (42-75); PLATELET COUNT 257 10^3/uL (130-400); WHITE BLOOD COUNT 8.1 10^3/uL (4.3-11.0)
[2021-05-01 12:36] LABS: ALBUMIN 4.3 GM/DL (3.2-4.5)
[2021-05-01 12:37] LABS: POTASSIUM 3.9 MMOL/L (3.6-5.0)
[2021-05-01 12:38] LABS: CALCIUM 9.5 MG/DL (8.5-10.1)
[2021-05-01 12:39] LABS: TOTAL PROTEIN 7.3 GM/DL (6.4-8.2)
[2021-05-01 12:41] LABS: BILIRUBIN,TOTAL 0.6 MG/DL (0.1-1.0); PROTHROMBIN TIME PATIENT 13.4 SEC (12.2-14.7)
[2021-05-01 12:43] LABS: CREATININE SERUM 0.86 MG/DL (0.60-1.30)
[2021-05-01 12:46] LABS: MAGNESIUM 2.2 MG/DL (1.6-2.4)
[2021-05-01 12:47] LABS: LIPASE 34 U/L (8-78)
[2021-05-01] MEDS ORDERED: LIDOCAINE 2% VISCOUS 15 ML UDC PO ONE ×2 (13:00→15:30)
[2021-05-01] MEDS ORDERED: ANTACID SUSP 30 ML UDC (MYLANTA) PO ONE ×2 (13:00→15:30)
--- NOTE | 2021-05-01 13:14 | Diagnostic Imaging Report ---
PROCEDURE: US Gallbladder. TECHNIQUE: Multiple real-time grayscale images were obtained over the right upper quadrant in various projections. INDICATION: Epigastric pain. FINDINGS: Liver is echogenic and measures 22 cm in length. There is a probable 3.5 cm cyst in the dome of the liver without other focal hepatic abnormality identified. Gallbladder is obscured by overlying bowel. Gallbladder has a normal appearance without filling defect. Pancreas is also unremarkable. Retroperitoneal aorta and inferior vena cava are obscured. Right kidney has a normal appearance, and there is no evidence of free fluid. IMPRESSION: Hepatomegaly with fatty metamorphosis. Otherwise, no acute abnormality is seen within the abdomen or pelvis on study limited by patient body habitus and gas-containing bowel. Dictated by: Dictated on workstation # [id number]
--- NOTE | 2021-05-01 13:16 | Diagnostic Imaging Report ---
INDICATION: Chest pain. AP view of the chest is obtained. FINDINGS: Overall heart size and pulmonary vascularity are within normal limits. There is no evidence of pneumothorax. There is air trapping bilaterally. No consolidation is seen. There is no evidence of pleural fluid. Calcifications project over the anterior aspect of the left shoulder joint, which may represent osteochondromatosis or loose body. IMPRESSION: Background emphysema without acute abnormality seen in the chest. There are possible loose bodies in the left shoulder joint, and clinical correlation would be useful. Dictated by: Dictated on workstation # [id number]
[2021-05-01] MEDS ORDERED: HOLD METFORMIN - RECEIVED CONTRAST 20 ML VIAL IV SCH (14:00)
[2021-05-01] MEDS ORDERED: IOHEXOL 350 MG/ML 100 ML (OMNIPAQUE 350) VIAL IV ONE (14:00)
[2021-05-01] MEDS ORDERED: NS 100 ML (IVPB) BAG IV ONE (14:00)
--- NOTE | 2021-05-01 14:32 | Diagnostic Imaging Report ---
PROCEDURE: CT abdomen and pelvis with contrast. TECHNIQUE: Multiple contiguous axial images were obtained through the abdomen and pelvis after administration of intravenous contrast. Auto Exposure Controls were utilized during the CT exam to meet ALARA standards for radiation dose reduction. All CT scans use one or more of the following dose optimizing techniques: Automated exposure control, MA and/or KvP adjustment based on patient size and exam type or iterative reconstruction. INDICATION: Epigastric pain. COMPARISON: Liver gallbladder sonogram from earlier same day. FINDINGS: Included portions of the lung bases are clear. CT ABDOMEN: Small bowel loops are nondistended. Normal appendix is identified. Liver is diffusely hypodense on this postcontrast exam. Findings are consistent with hepatic steatosis. Benign-appearing cyst is noted within the dome of the right lobe of the liver. No suspicious enhancing hepatic masses are identified. The kidneys, adrenal glands, spleen, and pancreas have a normal CT appearance. There is no loculated fluid collection, free fluid, nor free air within the abdomen. No abnormal mesenteric or retroperitoneal adenopathy is identified. Osseous structures show no acute abnormalities. Hrbe-st-jfkszipl scattered calcified and noncalcified aortic and arterial atherosclerosis is noted. Osseous structures show no acute abnormalities. CT PELVIS: Pelvis is moderately partially obscured secondary to metallic beam hardening artifact from bilateral hip prostheses. There is no loculated fluid collection, free fluid, or free air. No abnormal adenopathy is seen. Urinary bladder is not well assessed. IMPRESSION: 1. No acute abnormalities are seen within the abdomen or pelvis. 2. Hepatic steatosis and benign-appearing hepatic cyst. Dictated by: Dictated on workstation # [id number]
[2021-05-01] MEDS ORDERED: PANT40TA2 PO (15:19)
[2021-05-01] MEDS ORDERED: ACHD5005 PO (15:26)
[2021-05-01 15:36] VITALS: BP 175/99
== END 2021-05-01 15:36 | disposition home or self-care (01) ==
LOC: EDUNIT# 11:57 → ER 11:59
DX: K29.70 Gastritis, unspecified, without bleeding (principal); E66.9 Obesity, unspecified; Z68.29 Body mass index [BMI] 29.0-29.9, adult
CPT/HCPCS: 36415; 71045; 74177; 76705; 80053; 83690; 83735; 83874; 84484; 85025; 85610; 85730; 93005; 93041

== ENCOUNTER → 2021-07-05 | Outpatient (CLI) | payer MEDICARE, MEDICAID ==
[~2021-07-05] MED LIST changes: +ACHD5005 PO; +PANT40TA2 PO
--- NOTE | 2021-07-05 11:09 | Diagnostic Imaging Report ---
INDICATION: Routine screening. COMPARISON: 06/06/2020 and 11/11/2018. TECHNIQUE: 2D and 3D bilateral screening mammography was performed with CAD. FINDINGS: Both breasts are heterogeneously dense, limiting the sensitivity of mammography. An intraparenchymal lymph node in the upper outer left breast is stable. No new mass or malignant-appearing microcalcifications are seen. There are benign calcifications present. The axillae are unremarkable. IMPRESSION: No mammographic features suspicious for malignancy are identified. ACR BI-RADS Category 2: Benign findings. Result letter will be mailed to the patient. Note: At least 10% of breast cancer is not imaged by mammography. Dictated by: Dictated on workstation # [id number]
== END ==
LOC: RAD 10:00
PROVIDERS: ATTEND Family Medicine
DX: Z12.31 Encounter for screening mammogram for malignant neoplasm of breast (principal)
CPT/HCPCS: 77063; 77067

== ENCOUNTER → 2021-08-28 | Outpatient (CLI) | payer MEDICARE, MEDICAID ==
--- NOTE | 2021-08-28 12:41 | Diagnostic Imaging Report ---
EXAMINATION: CT chest without contrast (lung screening). TECHNIQUE: Multiple contiguous axial images were obtained through the chest without the use of intravenous contrast according to lung cancer screening protocol. All CT scans use one or more of the following dose optimizing techniques: automated exposure control, MA and/or KvP adjustment based on patient size and exam type or iterative reconstruction. HISTORY: 34 pack year history of smoking. COMPARISON: 07/15/2020 FINDINGS: There is no edema or pneumonia. No pleural effusion. No pneumothorax. No suspicious nodules. There is no axillary or supraclavicular lymphadenopathy. There is no mediastinal lymphadenopathy. Heart size is normal. There are mild coronary artery calcifications. No pericardial effusion. Aorta is normal in caliber. Limited views of the upper abdomen show a cyst in the liver. There are no suspicious osseus lesions. IMPRESSION: 1. No suspicious pulmonary nodules. LUNG-RADS CATEGORY: 1 MODIFIER: None. Dictated by: Dictated on workstation # [id number]
== END ==
LOC: RAD 11:15
PROVIDERS: ATTEND Internal Medicine Critical Care Medicine
DX: J44.9 Chronic obstructive pulmonary disease, unspecified (principal); Z87.891 Personal history of nicotine dependence
CPT/HCPCS: 71271

== ENCOUNTER → 2022-09-03 | Outpatient (CLI) | payer MEDICARE, MEDICAID ==
--- NOTE | 2022-09-03 14:27 | Diagnostic Imaging Report ---
EXAMINATION: CT Lung Screening. INDICATION: 34 pack year smoking history with cessation 3 years ago. She presents for annual low-dose CT screening. TECHNIQUE: Noncontrast, low-dose CT imaging performed according to the lung cancer screening protocol. Auto Exposure Controls were utilize during the CT exam to meet ALARA standards for radiation dose reduction. COMPARISON: 08/28/2021. FINDINGS: Stable mild biapical pleural-parenchymal scarring persists. No new or suspicious lung mass. No findings suggestive of lung cancer. There is no thoracic lymphadenopathy. No consolidating pneumonia or pulmonary edema. No acute chest wall pathology and the visible upper abdomen is nonacute. IMPRESSION: No evidence of lung cancer or acute pathology. Continued annual low-dose CT screening followup os recommended in 1 year. ACR BI-RADS Category 1: Negative. Result letter will be mailed to the patient. Note: At least 10% of breast cancer is not imaged by mammography. LUNG-RADS CATEGORY:Category 1. MODIFIER:None. Dictated by: Dictated on workstation # [id number]
== END ==
LOC: RAD 11:32
PROVIDERS: ATTEND Internal Medicine Critical Care Medicine
DX: J44.9 Chronic obstructive pulmonary disease, unspecified (principal); Z87.891 Personal history of nicotine dependence
CPT/HCPCS: 71271

== ENCOUNTER → 2022-10-02 | Outpatient (CLI) | payer MEDICARE, MEDICAID ==
--- NOTE | 2022-10-03 10:28 | Diagnostic Imaging Report ---
INDICATION: Routine screening. COMPARISON: 07/05/2021 and 06/06/2020. TECHNIQUE: 2D and 3D bilateral screening mammography was performed with CAD. FINDINGS: Both breasts are heterogeneously dense, limiting the sensitivity of mammography. The benign nodule in the upper outer left breast is stable. No new mass or malignant-appearing microcalcifications are seen. Occasional benign calcifications are noted. The axillae are unremarkable. IMPRESSION: No mammographic features suspicious for malignancy are identified. ACR BI-RADS Category 2: Benign findings. Result letter will be mailed to the patient. Note: At least 10% of breast cancer is not imaged by mammography. Dictated by: Dictated on workstation # [id number]
== END ==
LOC: RAD 13:36
PROVIDERS: ATTEND Family Medicine
DX: Z12.31 Encounter for screening mammogram for malignant neoplasm of breast (principal)
CPT/HCPCS: 77063; 77067

== ENCOUNTER → 2022-11-27 | Outpatient (CLI) | payer MEDICARE, MEDICAID ==
--- NOTE | 2022-11-27 13:16 | Diagnostic Imaging Report ---
INDICATION: Postmenopausal state. COMPARISON: 06/14/2020. FINDINGS: AP Spine L2-L4: [BMD (g/cm2): 1.080] [T-Score: -1.0] [Z-Score: 0.2] [BMD Previous: 1.077] [BMD % Change: 0.3] LT Hip Neck/total [BMD (g/cm2): NA] [T-Score: NA] [Z-Score: NA] RT Hip Neck/total [BMD (g/cm2):NA] [T-Score:NA] [Z-Score:NA] Left forearm, left radius UD: [BMD (g/cm2):0.393] [T-score:-1.7] [Z-Score:0.0] [BMD Previous:NA] [BMD % Change:NA] Right forearm, right radius UD BMD: 0.466g/cm2, T score: - 0.1, Z score: 1.6 *Indicates significant change from prior examination based on 95% confidence level. World Health Organization criteria for BMD interpretation classify patients as Normal (T-score at or above -1.0), Osteopenic (T-score between -1.0 and -2.5) or Osteoporotic (T-score at or below -2.5). LIMITATIONS AND MODIFICATION: The bilateral hips are not evaluated secondary to postsurgical changes. However, FRAX score is unable to be calculated given bilateral hip arthroplasties. IMPRESSION: 1. Osteopenia (Low bone mass). 2. No significant change in bone mineral density since prior examination. 3. See below National Osteoporosis Foundation guidelines on when to potentially initiate pharmacologic therapy. Based on the National Osteoporosis Foundation Guidelines, pharmacologic treatment should be initiated in any of the following, unless clinical conditions suggest otherwise: * Any patient with prior fragility fracture of the hip or vertebrae. A spine fracture indicates 5X risk for subsequent spine fracture and 2X risk for subsequent hip fracture. * Osteoporosis (T-score <-2.5). * Postmenopausal women and men age 50 and older with low bone mass/osteopenia (T-score between -1.0 and -2.5) by DXA and 10-year major osteoporotic fracture greater than 20% or a 10-year probability of hip fracture greater than 3%. These fracture risks are supplied above in the FRAX score, if applicable. * Clinician judgement and/or patient preferences may indicate treatment for people with 10-year fracture probabilities above or below these levels. Dictated by: Dictated on workstation # [id number]
== END ==
LOC: RAD 11:42
PROVIDERS: ATTEND Family Medicine
DX: Z13.820 Encounter for screening for osteoporosis (principal); M85.80 Other specified disorders of bone density and structure, unspecified site; E28.39 Other primary ovarian failure; Z78.0 Asymptomatic menopausal state
CPT/HCPCS: 77080